=== PATIENT | male | born 1960 | race Caucasian/White ===

== ENCOUNTER 2017-10-09 17:29 | Observation (INO) | payer OTHER ==
[~2017-10-09] VITALS: Ht 190.5 cm; Wt 99.4 kg
[2017-10-09] MEDS ORDERED: ACETAMINOPHEN 500 MG TAB PO STA (17:44)
--- NOTE | 2017-10-09 17:47 | EMERGENCY ROOM VISIT NOTE ---
History Report prepared by Ronny: Juan Manuel Villeda Under the Supervision of: Dr. Dashawn Metz M.D. First contact with patient: 17:35 Chief Complaint: CHEST PAIN Stated Complaint: CHEST PAIN History of Present Illness The patient is a 57 year old white male with a past medical history of DM2, CAD status-post stents, hypertension, hyperlipidemia, hypothyroidism, who [facility] with a cc of intermittent left-sided beginning around 2 and a half hours ago. Positive mild nausea. Negative radiation of pain, shortness of breath, abdominal pain, diaphoresis, cough, fevers, chills, leg swelling. He states that the pain feels like a sharp "pin prick", and the pain has been off-and-on. The patient says that the pain is still coming and going. He says that exertion has not changed the pain. He notes no recent trauma. The patient also notes no recent over-use of his left arm. He states that he has had a bruise on his left shoulder for a few days but is on a blood thinner. He is on Brilinta for the stents. Source of History: patient Onset: 2 and a half hours ago Position: chest (left) Quality: sharp Timing: intermittent Associated Symptoms: + nausea, No fevers, No chills, No diaphoresis, No cough, No abdominal pain Note: Negative leg swelling. Review of Systems See HPI for pertinent positives and negatives. A total of ten systems were reviewed and were otherwise negative. Past Medical & Surgical Medical Problems: (1) DM2 (diabetes mellitus, type 2) (2) HLD (hyperlipidemia) (3) HTN (hypertension) (4) Hypothyroid Surgical Problems: (1) CAD (coronary artery disease) (2) Hx of heart artery stent Family History No pertinent family history Social History Drug Use: none Housing Status: other (inmate) Occupation Status: other (inmate) Current/Historical Medications Scheduled Amlodipine (Norvasc), 10 MG PO DAILY Aspirin (Aspirin Chewable), 81 MG PO DAILY Atorvastatin (Lipitor), 40 MG PO HS Duloxetine Hcl (Cymbalta), 60 MG PO HS Hydrochlorothiazide (Hctz), 25 MG PO DAILY Insulin Glargine (Lantus), 8 UNITS SC HS V-Tyyosczzsknh-Vwitb (Deplin 15), 15 MG PO HS Lamotrigine (Lamictal), 200 MG PO DAILY Levothyroxine Sodium (Synthroid), 25 MCG PO DAILY Lisinopril (Zestril), 20 MG PO BID Metformin Hcl (Glucophage), 850 MG PO BID Metoprolol Tartrate (Lopressor) (Lopressor), 100 MG PO BID Potassium Chloride (K-Tab), 20 MEQ PO BID Pumice Stone (Pumice (Flour)), 1 DOSE [id number] Ticagrelor (Brilinta), 90 MG PO BID [Benadryl 50 Mg], 100 MG PO HS Physical Exam Vital Signs Date Time Temp Pulse Resp B/P (MAP) Pulse Ox O2 Delivery O2 Flow Rate FiO2 10/09/17 18:02 98 Room Air 10/09/17 17:40 98 Room Air 10/09/17 17:40 36.6 72 23 141/93 98 Room Air 10/09/17 17:40 64 Physical Exam GENERAL: Awake, alert, well-appearing, NAD, wearing glasses, has thinning hair. HENT: Normocephalic, atraumatic. EYES: Normal conjunctiva. Sclera non-icteric. NECK: Supple. No nuchal rigidity. FROM. RESPIRATORY: CTAB, no rhonchi, wheezing, crackles CARDIAC: RRR, no MRG ABDOMEN: Soft, NTND, BS+ MSK: No reproducible chest wall pain, no LE edema NEURO: GCS 15, CN 2-12 intact, moves all 4s on command SKIN: No rash or jaundice noted. Tattoos on arms. Medical Decision & Procedures ER Provider Diagnostic Interpretation: X-ray: Per my interpretation, radiologist review. CHEST ONE VIEW PORTABLE CLINICAL HISTORY: CHEST PAIN COMPARISON STUDY: No previous studies for comparison. FINDINGS: Lung volumes are normal. No pneumothorax or pleural effusion is noted. There is no consolidation. Mild bibasilar opacities favor atelectasis. Cardiomediastinal silhouette is normal. IMPRESSION: No acute cardiopulmonary findings. Electronically signed by: Nik Allen M.D. 10/09/2017 6:12 PM Dictated Date/Time: 10/09/2017 5:59 PM Laboratory Results 10/09/17 18:10 Red Blood Count 4.80, Mean Corpuscular Volume 87.1, Mean Corpuscular Hemoglobin 30.0, Mean Corpuscular Hemoglobin Concent 34.4, Mean Platelet Volume 11.2, Neutrophils (%) (Auto) 60.9, Lymphocytes (%) (Auto) 28.6, Monocytes (%) (Auto) 8.1, Eosinophils (%) (Auto) 1.8, Basophils (%) (Auto) 0.4, Neutrophils # (Auto) 6.96, Lymphocytes # (Auto) 3.27, Monocytes # (Auto) 0.92, Eosinophils # (Auto) 0.20, Basophils # (Auto) 0.05 10/09/17 18:10 Test 10/09/17 18:10 10/09/17 19:25 White Blood Count 11.42 K/uL (4.8-10.8) Red Blood Count 4.80 M/uL (4.7-6.1) Hemoglobin 14.4 g/dL (14.0-18.0) Hematocrit 41.8 % (42-52) Mean Corpuscular Volume 87.1 fL (80-100) Mean Corpuscular Hemoglobin 30.0 pg (25-34) Mean Corpuscular Hemoglobin Concent 34.4 g/dl (32-36) Platelet Count 147 K/uL (130-400) Mean Platelet Volume 11.2 fL (7.4-10.4) Neutrophils (%) (Auto) 60.9 % Lymphocytes (%) (Auto) 28.6 % Monocytes (%) (Auto) 8.1 % Eosinophils (%) (Auto) 1.8 % Basophils (%) (Auto) 0.4 % Neutrophils # (Auto) 6.96 K/uL (1.4-6.5) Lymphocytes # (Auto) 3.27 K/uL (1.2-3.4) Monocytes # (Auto) 0.92 K/uL (0.11-0.59) Eosinophils # (Auto) 0.20 K/uL (0-0.5) Basophils # (Auto) 0.05 K/uL (0-0.2) RDW Standard Deviation 45.8 fL (36.4-46.3) RDW Coefficient of Variation 14.4 % (11.5-14.5) Immature Granulocyte % (Auto) 0.2 % Immature Granulocyte # (Auto) 0.02 K/uL (0.00-0.02) Prothrombin Time 11.4 SECONDS (9.0-12.0) Prothromb Time International Ratio 1.1 (0.9-1.1) Activated Partial Thromboplast Time 29.1 SECONDS (21.0-31.0) Partial Thromboplastin Ratio 1.1 Anion Gap 6.0 mmol/L (3-11) Est Creatinine Clear Calc Drug Dose 103.9 ml/min Estimated GFR () 94.6 Estimated GFR (Non- 81.6 BUN/Creatinine Ratio 11.2 (10-20) Calcium Level 9.0 mg/dl (8.5-10.1) Total Bilirubin 0.3 mg/dl (0.2-1) Direct Bilirubin 0.1 mg/dl (0-0.2) Aspartate Amino Transf (AST/SGOT) 17 U/L (15-37) Alanine Aminotransferase (ALT/SGPT) 21 U/L (12-78) Alkaline Phosphatase 86 U/L (45-117) Pro-B-Type Natriuretic Peptide 108 pg/ml (0-900) Total Protein 7.5 gm/dl (6.4-8.2) Albumin 3.9 gm/dl (3.4-5.0) Lipase 162 U/L (73-393) Troponin I < 0.015 ng/ml (0-0.045) Laboratory results reviewed by me Medications Administered Medications (Trade) Dose Ordered Sig/Karan Route Start Time Stop Time Status Last Admin Dose Admin Acetaminophen (Tylenol Tab) 1,000 mg NOW STAT PO 10/09/17 17:44 10/09/17 17:45 DC 10/09/17 18:01 1,000 MG Aspirin (Aspirin Chew) 162 mg NOW STAT PO 10/09/17 18:15 10/09/17 18:16 DC 10/09/17 18:31 162 MG Magnesium Oxide (Mag-Ox Tab) 800 mg ONE STAT PO 10/09/17 18:42 10/09/17 18:43 DC 10/09/17 18:53 800 MG Potassium Chloride (Klor-Con Tab) 40 meq NOW STAT PO 10/09/17 18:42 18 18:43 DC 10/09/17 18:57 20 MEQ Potassium Chloride (Klor-Con M10) 20 meq STK-MED ONCE .ROUTE 10/09/17 18:55 10/09/17 18:56 DC 10/09/17 18:57 20 MEQ ECG Per My Interpretation Indication: chest pain Rate (beats per minute): 63 Rhythm: sinus rhythm Findings: 1st degree AV block, T-wave inversion (in anterior and lateral leads) , other (normal qrs) Change: 2nd ECG: Sinus bradycardia at 55 bpm. First degree AV block. TWI in anterior and lateral leads. Normal QRS. ED Course 1738: The patient was evaluated in room B7. A complete history and physical exam was performed. 1916: I reevaluated the patient and he has no pain. 1955: Upon reexamination, the patient was willing to stay. I discussed the test results and treatment plan with him. The patient will be evaluated for further management. 2003: Discussed the patient's case [place] [facility] The patient will be evaluated for further treatment and disposition. Medical Decision Nursing notes reviewed. Ancillary studies and prior records reviewed. Differential diagnosis: Etiologies such as cardiac ischemia, aortic dissection, pulmonary embolism, pneumonia, pneumothorax, musculoskeletal, infections, pericarditis, myocarditis , esophageal rupture, gastrointestinal, as well as others were entertained. Patient was seen and evaluated the bedside. Patient is a 57-year-old prisoner with a prior history of CAD status post stents on Brilinta, hypertension, hyperlipidemia, hypothyroidism who presents with a chief complaint of chest pain. Patient does state that it is left-sided sharp nonradiating. Patient denies any nausea vomiting or diaphoresis. Patient is unsure as whether or not his chest pain is exertional or positional. Patient did have blood work completed along with EKG, troponin, chest x-ray. Patient's chest x-ray was unremarkable. Patient's EKG did show TW I in the anterior and lateral leads. No priors to compare to. Patient was given some aspirin given his Brilinta use the patient was also given some Tylenol. Patient 's blood work is fairly unremarkable. Patient had mild hypokalemia. This is repleted. Magnesium was also added and the patient was given magnesium oxide. Given the patient's high risk nature along with the T-wave inversions with no prior comparison I did discuss it with the patient who agreed for likely observation. I did discuss case with the on-call hospitalist who agreed to further evaluate and treat patient. I did discuss the patient with the machine adjuster leader case trim in order to help obtain the outside patient records from [facility]. Medication Reconcilliation Current Medication List: was personally reviewed by me Blood Pressure Screening Patient's blood pressure: Elevated blood pressure Referred to hospitalist. Consults Time Called: 1999 Consulting Physician: Dr. Mark HERNANDEZ hospitalist Returned Call: 2003 Discussed the patient's case with Dr. Mark HERNANDEZ hospitalist. The patient will be evaluated for further treatment and disposition. Impression Primary Impression: Atypical chest pain Additional Impressions: Hypokalemia CAD S/P percutaneous coronary angioplasty Scribe Attestation The scribe's documentation has been prepared under my direction and personally reviewed by me in its entirety. I confirm that the note above accurately reflects all work, treatment, procedures, and medical decision making performed by me. Departure Information Dispostion Being Evaluated By Hospitalist Patient Instructions My [facility] Problem Qualifiers
--- NOTE | 2017-10-09 18:13 | DIAGNOSTIC IMAGING REPORT ---
CHEST ONE VIEW PORTABLE CLINICAL HISTORY: CHEST PAIN COMPARISON STUDY: No previous studies for comparison. FINDINGS: Lung volumes are normal. No pneumothorax or pleural effusion is noted. There is no consolidation. Mild bibasilar opacities favor atelectasis. Cardiomediastinal silhouette is normal. IMPRESSION: No acute cardiopulmonary findings. Electronically signed by: Nik Allen M.D. 10/09/2017 6:12 PM Dictated Date/Time: 10/09/2017 5:59 PM
[2017-10-09] MEDS ORDERED: ASPIRIN 324 MG CHEW PO STA (18:15)
[2017-10-09 18:19] LABS: BASO % 0.4 %; BASO ABS # 0.05 K/uL (0-0.2); EOS % 1.8 %; HEMATOCRIT 41.8 % (42-52); HEMOGLOBIN 14.4 g/dL (14.0-18.0); IG# 0.02 K/uL (0.00-0.02); LYMPH % 28.6 %; LYMPH ABS # 3.27 K/uL (1.2-3.4); MEAN CELL VOLUME 87.1 fL (80-100); MEAN CORPUSCULAR HGB CONC 34.4 g/dl (32-36); MEAN PLATELET VOLUME 11.2 fL (7.4-10.4); MONO % 8.1 %; MONO ABS # 0.92 K/uL (0.11-0.59); NEUT % 60.9 %; NEUT ABS # 6.96 K/uL (1.4-6.5); PLATELET COUNT 147 K/uL (130-400); RED CELL DISTRIBUTION WIDTH CV 14.4 % (11.5-14.5); RED CELL DISTRIBUTION WIDTH SD 45.8 fL (36.4-46.3); WHITE BLOOD COUNT 11.42 K/uL (4.8-10.8)
[2017-10-09 18:30] LABS: INR 1.1 (0.9-1.1); PTT PATIENT 29.1 SECONDS (21.0-31.0)
[2017-10-09 18:37] LABS: ALBUMIN 3.9 gm/dl (3.4-5.0); ALT/SGPT 21 U/L (12-78); AST/SGOT 17 U/L (15-37); BLOOD UREA NITROGEN 11 mg/dl (7-18); CARBON DIOXIDE 26 mmol/L (21-32); CREATININE 1.01 mg/dl (0.60-1.40); GLUCOSE 85 mg/dl (70-99); LIPASE 162 U/L (73-393); POTASSIUM 3.2 mmol/L (3.5-5.1); SODIUM 138 mmol/L (136-145)
[2017-10-09 18:42] LABS: ALKALINE PHOSPHATASE 86 U/L (45-117); TOTAL PROTEIN 7.5 gm/dl (6.4-8.2)
[2017-10-09] MEDS ORDERED: POTASSIUM CHLORIDE 20 MEQ TABCR PO STA (18:42)
[2017-10-09] MEDS ORDERED: MAGNESIUM OXIDE 400 MG TAB PO STA (18:42)
[2017-10-09] MEDS ORDERED: POTASSIUM CHLORIDE 10 MEQ TABCR ONE (18:55)
[2017-10-09] MEDS ORDERED: L-ME1CAP PO (19:52)
[2017-10-09] MEDS ORDERED: ASPCH81X PO (19:52)
[2017-10-09] MEDS ORDERED: POTA1TAB97 PO (19:52)
[2017-10-09] MEDS ORDERED: LAMO100T16 PO (19:52)
[2017-10-09] MEDS ORDERED: HYDR25TA4 PO (19:52)
[2017-10-09] MEDS ORDERED: INSDGI SC (19:52)
[2017-10-09] MEDS ORDERED: [UNRECOGNIZED DRUG - CODE] (19:52)
[2017-10-09] MEDS ORDERED: BENADRYL 50 MG PO (19:52)
[2017-10-09] MEDS ORDERED: LISI-725 PO (19:52)
[2017-10-09] MEDS ORDERED: ATOR-24 PO (19:52)
[2017-10-09] MEDS ORDERED: DULO60CA44 PO (19:52)
[2017-10-09] MEDS ORDERED: AMLO-114 PO (19:52)
[2017-10-09] MEDS ORDERED: LEVO25TA PO (19:52)
[2017-10-09] MEDS ORDERED: METO100T14 PO (19:52)
[2017-10-09] MEDS ORDERED: TICA1TAB PO (19:52)
[2017-10-09] MEDS ORDERED: METF-383 PO (19:52)
[2017-10-09] MEDS ORDERED: MAGNESIUM HYDROXIDE SUSP 30 ML UDC PO PRN (22:30)
[2017-10-09] MEDS ORDERED: POLYETHYLENE (MIRALAX) 17 GM PACK PO PRN (22:30)
[2017-10-09] MEDS ORDERED: ACETAMINOPHEN 325 MG TAB PO PRN (22:30)
[2017-10-09] MEDS ORDERED: ZOLPIDEM TARTRATE 5 MG TAB PO PRN (22:30)
[2017-10-09] MEDS ORDERED: ALUMINUM/MAGNESIUM/SIMETH (MAALOX MAX) 30 ML UDC PO PRN (22:30)
[2017-10-09] MEDS ORDERED: ONDANSETRON INJ 2 MG/ML 2 ML VIAL IV PRN (22:30)
--- NOTE | 2017-10-09 22:54 | History and Physical ---
History & Physical Date & Time of Service: Oct 09, 2017 at 21:57 Chief Complaint: Chest Pain Primary Care Physician: Leia MELGAR History of Present Illness Source: patient, hospital records 57M from [facility] with a PMHx of CAD s/p 3 stents in May 2017, DM2 (on insulin ), hypothyroidism, HTN p/w a pin prick sensation over the left chest that started while he was at rest watching TV. The location is approx 3-4cm lateral and 1-2cm inferior to the left nipple. Patient states that because of his prior cardiac history he isn't taking any chances with any chest discomfort and told the guards about his discomfort. Pt reports his previous anginal symptoms prior to the PCI was more of a chest pressure/pain that radiated down the left arm. The pin prick sensation is a completely different type of chest pain Pt denies ever having chicken pox or herpes Zoster and denies knowing what the latter is. Pt states there is no rash over the area. Pt had PCI last year in May 2017 while incarcerated. He was transfered to [facility] June [facility] a penitentiary in [facility] after his PCI which is likely why he was brought to [facility] and not [facility]. Records from [facility] were reviewed. No high quality EKGs are available for reviewing. Pt states that he has been feeling otherwise healthy. ROS: No fevers, no chills, no dyspnea on exertion, no lightheadedness, no cough , no falls. Past Medical/Surgical History Medical Problems: (1) DM2 (diabetes mellitus, type 2) (2) HLD (hyperlipidemia) (3) HTN (hypertension) (4) Hypothyroid Surgical Problems: (1) CAD (coronary artery disease) (2) Hx of heart artery stent Family History No pertinent family history Social History Smoking Status: Unknown if Ever Smoked Drug Use: none Occupational Status: other (inmate) Immunizations History of Influenza Vaccine: Unknown History of Tetanus Vaccine?: Unknown History of Pneumococcal: Unknown History of Hepatitis B Vaccine: Unknown Allergies Coded Allergies: No Known Allergies (Unverified , 10/09/17) Home Medications Scheduled Amlodipine (Norvasc), 10 MG PO DAILY Aspirin (Aspirin Chewable), 81 MG PO DAILY Atorvastatin (Lipitor), 40 MG PO HS Duloxetine Hcl (Cymbalta), 60 MG PO HS Hydrochlorothiazide (Hctz), 25 MG PO DAILY Insulin Glargine (Lantus), 8 UNITS SC HS J-Oocqmfmpfyox-Thasf (Deplin 15), 15 MG PO HS Lamotrigine (Lamictal), 200 MG PO DAILY Levothyroxine Sodium (Synthroid), 25 MCG PO DAILY Lisinopril (Zestril), 20 MG PO BID Metformin Hcl (Glucophage), 850 MG PO BID Metoprolol Tartrate (Lopressor) (Lopressor), 100 MG PO BID Potassium Chloride (K-Tab), 20 MEQ PO BID Pumice Stone (Pumice (Flour)), 1 DOSE [id number] Ticagrelor (Brilinta), 90 MG PO BID [Benadryl 50 Mg], 100 MG PO HS Review of Systems Constitutional: No fever, No chills Eyes: No worsening of vision ENT: No hearing loss Respiratory: No cough, No sputum, No wheezing, No shortness of breath, No dyspnea on exertion Cardiovascular: No chest pain, No orthopnea, No edema, No claudication Abdomen: No pain, No nausea, No vomiting, No diarrhea, No constipation Musculoskeletal: No joint pain Genitourinary - Male: No hematuria Endocrine: No fatigue Integumentary: No rash Physical Exam Vital Signs Date Time Temp Pulse Resp B/P (MAP) Pulse Ox O2 Delivery O2 Flow Rate FiO2 10/09/17 21:41 63 10/09/17 21:00 56 10 129/95 96 10/09/17 20:30 57 19 98 10/09/17 20:00 60 17 98 10/09/17 19:30 56 19 98 10/09/17 19:00 58 12 99 10/09/17 18:02 98 Room Air 10/09/17 17:40 98 Room Air 10/09/17 17:40 36.6 72 23 141/93 98 Room Air 10/09/17 17:40 64 General Appearance: WD/WN, no apparent distress Head: normocephalic, atraumatic Eyes: normal inspection, PERRL, EOMI Neck: supple Respiratory/Chest: chest non-tender, lungs clear, normal breath sounds, no respiratory distress, no accessory muscle use Cardiovascular: regular rate, rhythm, no edema, no gallop, no JVD, no murmur, normal peripheral pulses Abdomen/GI: normal bowel sounds, non tender, soft, no organomegaly, no pulsatile mass Back: normal inspection Extremities/Musculoskelatal: normal inspection, no calf tenderness Neurologic/Psych: race starter II-XII nml as tested, no motor/sensory deficits, alert, normal mood/affect, normal reflexes, oriented x 3 Skin: + pertinent finding (Pt does report some increase sensitivity in the area of the skin over the left chest. No rashse or vesicles over the area. Pt does have some mild erythema over the sternum, maculopapular - no vesicles. ) Diagnostics Laboratory Results Results Past 24 Hours Test 10/09/17 18:10 10/09/17 19:25 Range/Units White Blood Count 11.42 4.8-10.8 K/uL Red Blood Count 4.80 4.7-6.1 M/uL Hemoglobin 14.4 14.0-18.0 g/dL Hematocrit 41.8 42-52 % Mean Corpuscular Volume 87.1 80-100 fL Mean Corpuscular Hemoglobin 30.0 25-34 pg Mean Corpuscular Hemoglobin Concent 34.4 32-36 g/dl Platelet Count 147 130-400 K/uL Mean Platelet Volume 11.2 7.4-10.4 fL Neutrophils (%) (Auto) 60.9 % Lymphocytes (%) (Auto) 28.6 % Monocytes (%) (Auto) 8.1 % Eosinophils (%) (Auto) 1.8 % Basophils (%) (Auto) 0.4 % Neutrophils # (Auto) 6.96 1.4-6.5 K/uL Lymphocytes # (Auto) 3.27 1.2-3.4 K/uL Monocytes # (Auto) 0.92 0.11-0.59 K/uL Eosinophils # (Auto) 0.20 0-0.5 K/uL Basophils # (Auto) 0.05 0-0.2 K/uL RDW Standard Deviation 45.8 36.4-46.3 fL RDW Coefficient of Variation 14.4 11.5-14.5 % Immature Granulocyte % (Auto) 0.2 % Immature Granulocyte # (Auto) 0.02 0.00-0.02 K/uL Prothrombin Time 11.4 9.0-12.0 SECONDS Prothromb Time International Ratio 1.1 0.9-1.1 Activated Partial Thromboplast Time 29.1 21.0-31.0 SECONDS Partial Thromboplastin Ratio 1.1 Sodium Level 138 136-145 mmol/L Potassium Level 3.2 3.5-5.1 mmol/L Chloride Level 106 98-107 mmol/L Carbon Dioxide Level 26 21-32 mmol/L Anion Gap 6.0 3-11 mmol/L Blood Urea Nitrogen 11 7-18 mg/dl Creatinine 1.01 0.60-1.40 mg/dl Est Creatinine Clear Calc Drug Dose 103.9 ml/min Estimated GFR () 94.6 Estimated GFR (Non- 81.6 BUN/Creatinine Ratio 11.2 10-20 Random Glucose 85 70-99 mg/dl Calcium Level 9.0 8.5-10.1 mg/dl Total Bilirubin 0.3 0.2-1 mg/dl Direct Bilirubin 0.1 0-0.2 mg/dl Aspartate Amino Transf (AST/SGOT) 17 15-37 U/L Alanine Aminotransferase (ALT/SGPT) 21 12-78 U/L Alkaline Phosphatase 86 45-117 U/L Troponin I < 0.015 < 0.015 0-0.045 ng/ml Pro-B-Type Natriuretic Peptide 108 0-900 pg/ml Total Protein 7.5 6.4-8.2 gm/dl Albumin 3.9 3.4-5.0 gm/dl Lipase 162 73-393 U/L Diagnostic Radiology CHEST ONE VIEW PORTABLE CLINICAL HISTORY: CHEST PAIN COMPARISON STUDY: No previous studies for comparison. FINDINGS: Lung volumes are normal. No pneumothorax or pleural effusion is noted. There is no consolidation. Mild bibasilar opacities favor atelectasis. Cardiomediastinal silhouette is normal. IMPRESSION: No acute cardiopulmonary findings. EKG EKG: Sinus, non specific T wave abnormality. Records from [facility] reviewed - Faxed EKG was too blurry to come to any conclusion. Computer read from [facility] showed "Sinus bradycardiac with 1st degree AV block, cannot rule out inferior infarct, age undertermined. Abnormal EKG" - DATED MAY 21, 2017. Impression Assessment and Plan 57M from [facility] with a PMHx of CAD s/p 3 stents in May 2017, DM2 (on insulin ), hypothyroidism, HTN p/w a pin prick sensation over the left chest. Unfortunately there are no prior EKGs to compare it to. Trops were negative x 1. Pt is admitted for a chest pain rule out. Pin Prick sensation over left chest, DDx include cardiac vs rashless Zoster. Trop neg x 1. Will trend trops and get EKG tomorrow. Daily EKGs. Will get Echocardiogram. CAD s/p PCI in May 2017 c/w ASA and Brilinta daily c/w Metoprolol 100mg BID HLD/HTN c/w Norvasc and Lipitor c/w HCTZ + 20meq KCL. c/w Lisinopril Metoprolol as above. Mood c/w Cymbalta 60mg QHS. c/w Lamictal 200mg PO daily. DM2 c/w Metformin and Lantus 8units SC HS. Will get a HBA1C. Hypothyroid c/w Synthroid 25mcg daily. DIET: NPO except meds, IVF. DVT Proph: HepSQ BID Obs to Tele. FULL CODE. Attending addendum: I have physically seen this patient, have supervised the medical residents activities, and agree with the H&P unless as otherwise noted. Assessment and Plan: CAD/hypertension/status post PCI May 2017-- The patient will be admitted to telemetry for serial cardiac enzymes, serial EKG's, cardiac rhythm monitoring and a 2-D echocardiogram with Dopplers.. Continue aspirin, Brilinta, metoprolol, Norvasc, HCTZ and potassium chloride supplements. Get records from [facility]. Cardiology consult. Diabetes mellitus-- Hold metformin. Continue Lantus 8 units subcu at bedtime. Place on Accu-Cheks before meals and at bedtime with NovoLog coverage per scale. Check hemoglobin A1c. Hyperlipidemia-- Continue atorvastatin. Check a fasting lipid profile. Other medications as above. Advanced Directives Existing Advance Directive: No Existing Living Will: No Existing Power of Sand Control Worker: No Resuscitation Status VTE Prophylaxis Will order VTE Prophylaxis: Yes Resident Involvement: Resident Care Provided Care Provided: Adult Hospital Medicine
[2017-10-09 23:20] VITALS: BP 134/125; PULSE 61; TEMP 36.4; O2SAT 98
[2017-10-09 23:40] VITALS: BP 134/125; PULSE 61; TEMP 36.4; O2SAT 98; Ht 190.5 cm; Wt 99.4 kg
[2017-10-09] MEDS ORDERED: PATIENT'S ALLERGY INFO NEEDS ENTERED SCH (23:45)
[2017-10-09] MEDS: NSS + 20MEQ KCL 1000ML 1,000 ML IV SCH (23:47)
[2017-10-09] MEDS ORDERED: PHARMACY GLYCEMIC MGMT CONSULT PRN (23:57)
[2017-10-10] MEDS ORDERED: IV FLUIDS COMPLETED PRN (00:45)
[2017-10-10 03:22] VITALS: BP 156/82; PULSE 56; TEMP 36.8; O2SAT 98
[2017-10-10 04:00] VITALS: O2SAT 98
[2017-10-10] MEDS ORDERED: LEVOTHYROXINE 25 MCG TAB PO SCH (06:00)
[2017-10-10] MEDS ORDERED: METFORMIN HCL 850 MG TAB PO SCH (07:30)
[2017-10-10 07:35] LABS: HEMOGLOBIN A1C 5.7 % (4.5-5.6)
--- NOTE | 2017-10-10 07:59 | Family Medicine Progress Note ---
Progress Note Date of Service Oct 10, 2017. Subjective Pt evaluation today including: conversation w/ patient Found patient resting and speaking very comfortably in the gurney. Says that his prior chest discomfort resolved perhaps around 8 pm (very roughly) last night and has yet to return. No present CP, SOB, N/V, abd pain, or other acute concerns. Just says he is hungry. Constitutional: No fever, No chills Respiratory: No cough, No shortness of breath Cardiovascular: No chest pain, No edema Abdomen: No pain, No nausea, No vomiting, No diarrhea Medications Reported Home Medications Medications Dose Route/Sig Max Daily Dose Days Date Category Pumice (Flour) (Pumice Stone) 1 Pow Pow 1 Dose [id number] 10/09/17 Reported Lantus (Insulin Glargine) 100 Unit/Ml Inj 8 Units SC HS 10/09/17 Reported K-Tab (Potassium Chloride) 20 Meq Tab 20 Meq PO BID 10/09/17 Reported Lopressor (Metoprolol Tartrate) 100 Mg Tab 100 Mg PO BID 10/09/17 Reported Glucophage (Metformin Hcl) 850 Mg Tab 850 Mg PO BID 10/09/17 Reported Zestril (Lisinopril) 20 Mg Tab 20 Mg PO BID 10/09/17 Reported Synthroid (Levothyroxine Sodium) 25 Mcg Tab 25 Mcg PO DAILY 10/09/17 Reported Lamictal (Lamotrigine) 100 Mg Tab 200 Mg PO DAILY 10/09/17 Reported Deplin 15 (V-Rkdfiaabvsge-Nchpr) 1 Cap Cap 15 Mg PO HS 10/09/17 Reported Hctz (Hydrochlorothiazide) 25 Mg Tab 25 Mg PO DAILY 10/09/17 Reported Cymbalta (Duloxetine Hcl) 60 Mg Cap 60 Mg PO HS 10/09/17 Reported [Benadryl 50 Mg] 100 Mg PO HS 10/09/17 Reported Brilinta (Ticagrelor) 90 Mg Tab 90 Mg PO BID 10/09/17 Reported Lipitor (Atorvastatin Calcium) 40 Mg Tab 40 Mg PO HS 10/09/17 Reported Aspirin Chewable (Aspirin) 81 Mg Chew 81 Mg PO DAILY 10/09/17 Reported Norvasc (Amlodipine Besylate) 10 Mg Tab 10 Mg PO DAILY 10/09/17 Reported Objective Vital Signs Date Time Temp Pulse Resp B/P (MAP) Pulse Ox O2 Delivery O2 Flow Rate FiO2 10/10/17 04:00 98 Room Air 10/10/17 03:22 36.8 56 17 156/82 (106) 98 Room Air 10/09/17 23:40 36.4 61 18 134/125 98 Room Air 10/09/17 23:20 36.4 61 18 134/125 (128) 98 Room Air 10/09/17 23:08 52 18 159/83 95 10/09/17 23:05 52 18 159/83 95 Room Air 10/09/17 21:41 63 10/09/17 21:00 56 10 129/95 96 10/09/17 20:30 57 19 98 10/09/17 20:00 60 17 98 10/09/17 19:30 56 19 98 10/09/17 19:00 58 12 99 10/09/17 18:02 98 Room Air 10/09/17 17:40 98 Room Air 10/09/17 17:40 36.6 72 23 141/93 98 Room Air 10/09/17 17:40 64 Physical Exam Notes: General Appearance: Awake, alert and oriented, in NAD. CV: +S1S2 RRR, no murmur. Pulm: CTA (B). No accessory muscle use. Abdomen: +BS, soft, non-tender, non-distended. Extremities: No pedal edema or calf tenderness. Moving all extremities easily and naturally. Neuro: No gross neuro deficits. Lines: PIV. Laboratory Results 10/09/17 18:10 Red Blood Count 4.80, Mean Corpuscular Volume 87.1, Mean Corpuscular Hemoglobin 30.0, Mean Corpuscular Hemoglobin Concent 34.4, Mean Platelet Volume 11.2, Neutrophils (%) (Auto) 60.9, Lymphocytes (%) (Auto) 28.6, Monocytes (%) (Auto) 8.1, Eosinophils (%) (Auto) 1.8, Basophils (%) (Auto) 0.4, Neutrophils # (Auto) 6.96, Lymphocytes # (Auto) 3.27, Monocytes # (Auto) 0.92, Eosinophils # (Auto) 0.20, Basophils # (Auto) 0.05 10/09/17 18:10 Test 10/09/17 18:10 10/10/17 01:44 10/10/17 07:43 White Blood Count 11.42 K/uL (4.8-10.8) Red Blood Count 4.80 M/uL (4.7-6.1) Hemoglobin 14.4 g/dL (14.0-18.0) Hematocrit 41.8 % (42-52) Mean Corpuscular Volume 87.1 fL (80-100) Mean Corpuscular Hemoglobin 30.0 pg (25-34) Mean Corpuscular Hemoglobin Concent 34.4 g/dl (32-36) Platelet Count 147 K/uL (130-400) Mean Platelet Volume 11.2 fL (7.4-10.4) Neutrophils (%) (Auto) 60.9 % Lymphocytes (%) (Auto) 28.6 % Monocytes (%) (Auto) 8.1 % Eosinophils (%) (Auto) 1.8 % Basophils (%) (Auto) 0.4 % Neutrophils # (Auto) 6.96 K/uL (1.4-6.5) Lymphocytes # (Auto) 3.27 K/uL (1.2-3.4) Monocytes # (Auto) 0.92 K/uL (0.11-0.59) Eosinophils # (Auto) 0.20 K/uL (0-0.5) Basophils # (Auto) 0.05 K/uL (0-0.2) RDW Standard Deviation 45.8 fL (36.4-46.3) RDW Coefficient of Variation 14.4 % (11.5-14.5) Immature Granulocyte % (Auto) 0.2 % Immature Granulocyte # (Auto) 0.02 K/uL (0.00-0.02) Prothrombin Time 11.4 SECONDS (9.0-12.0) Prothromb Time International Ratio 1.1 (0.9-1.1) Activated Partial Thromboplast Time 29.1 SECONDS (21.0-31.0) Partial Thromboplastin Ratio 1.1 Anion Gap 6.0 mmol/L (3-11) Est Creatinine Clear Calc Drug Dose 103.9 ml/min Estimated GFR () 94.6 Estimated GFR (Non- 81.6 BUN/Creatinine Ratio 11.2 (10-20) Calcium Level 9.0 mg/dl (8.5-10.1) Total Bilirubin 0.3 mg/dl (0.2-1) Direct Bilirubin 0.1 mg/dl (0-0.2) Aspartate Amino Transf (AST/SGOT) 17 U/L (15-37) Alanine Aminotransferase (ALT/SGPT) 21 U/L (12-78) Alkaline Phosphatase 86 U/L (45-117) Pro-B-Type Natriuretic Peptide 108 pg/ml (0-900) Total Protein 7.5 gm/dl (6.4-8.2) Albumin 3.9 gm/dl (3.4-5.0) Lipase 162 U/L (73-393) Estimated Average Glucose 117 mg/dl Hemoglobin A1c 5.7 % (4.5-5.6) Date/Time Source Procedure Growth Status 10/10/17 00:00 Nasal MRSA DNA Surveillance Screen - Final Specimen Negative for MRSA by DNA Probe Complete Assessment and Plan IN PROGRESS 57 yo male admitted on 09Oct2017 for chest discomfort. Transfer from [facility]. PMH: CAD s/p three vessel stenting in May 2017, DM2 on insulin, hypothyroidism, HTN, HLD. Chest discomfort: Described as a pin prick sensation for a few hours yesterday, since resolved. Does have PMH of CAD with stents. EKG sinus javy with first degree AV block, T wave inversions in V2-V6. Second EKG mostly unchanged. TnI x 3 negative. CXR without acute disease. Overnight did have an eight-beat run of V tach that self-resolved. Since then has been in sinus rhythm 50's to 70' s. - Echocardiogram from this morning pending. CAD s/p PCI May 2017: On ASA, Brilinta, metoprolol. Chronic medical history: - HTN: On HCTZ, KCl, lisinopril, metoprolol, norvasc. - HLD: On lipitor. - DM2: Holding metformin as inpatient. On lantus. Monitoring. - Hypothyroidism: On synthroid. - Mood: On cymbalta and lamictal. Code status: Full code. Diet: NPO in case of cardiac procedure today. DVT prophy: Heparin q12h. PT/OT: Deferred. Disbo: Admit for observation to telemetry. Resident Tracking Resident Involvement: Resident Care Provided Care Provided: Adult Hospital Medicine (inpatient)
[2017-10-10 08:08] VITALS: BP 155/87; PULSE 56; TEMP 36.8; O2SAT 97
[2017-10-10] MEDS: NSS + 20MEQ KCL 1000ML 1,000 ML IV SCH (08:10)
[2017-10-10] MEDS ORDERED: POTASSIUM CHLORIDE 20 MEQ TABCR PO SCH (09:00)
[2017-10-10] MEDS ORDERED: ASPIRIN 81 MG CHEW PO SCH (09:00)
[2017-10-10] MEDS ORDERED: AMLODIPINE BESYLATE 5 MG TAB PO SCH (09:00)
[2017-10-10] MEDS ORDERED: METOPROLOL TARTRATE 100 MG TAB PO SCH (09:00)
[2017-10-10] MEDS ORDERED: TICAGRELOR 90 MG TAB PO SCH (09:00)
[2017-10-10] MEDS ORDERED: HEPARIN SOD 5000 UNIT/0.5 ML CARP SQ SCH (09:00)
[2017-10-10] MEDS ORDERED: LISINOPRIL 20 MG TAB PO SCH (09:00)
[2017-10-10] MEDS ORDERED: HYDROCHLOROTHIAZIDE 25 MG TAB PO SCH (09:00)
[2017-10-10 11:36] VITALS: BP 120/62; PULSE 70; TEMP 36.9; O2SAT 94
--- NOTE | 2017-10-10 13:10 | Pharmacy Progress Note ---
Glycemic Control Intl Consult Date of Service Oct 10, 2017. Scope Glycemic Pharmacist consulted by Dr Ye on 10/10/17 for glycemic control and to write orders per [facility] inpatient glycemic control protocol Objective Weight (Kilograms): 99.400 Accuchecks BSG (last 24hrs): Test 10/09/17 18:10 10/10/17 11:10 Random Glucose 85 mg/dl (70-99) Bedside Glucose 96 mg/dl (70-99) Laboratory Data (last 24hrs) Test 10/09/17 18:10 10/10/17 01:44 Anion Gap 6.0 mmol/L BUN/Creatinine Ratio 11.2 Blood Urea Nitrogen 11 mg/dl Creatinine 1.01 mg/dl Potassium Level 3.2 mmol/L Sodium Level 138 mmol/L White Blood Count 11.42 K/uL Red Blood Count 4.80 M/uL Hemoglobin 14.4 g/dL Hematocrit 41.8 % Mean Corpuscular Volume 87.1 fL Mean Corpuscular Hemoglobin 30.0 pg Mean Corpuscular Hemoglobin Concent 34.4 g/dl Platelet Count 147 K/uL Mean Platelet Volume 11.2 fL Neutrophils (%) (Auto) 60.9 % Lymphocytes (%) (Auto) 28.6 % Monocytes (%) (Auto) 8.1 % Eosinophils (%) (Auto) 1.8 % Basophils (%) (Auto) 0.4 % Neutrophils # (Auto) 6.96 K/uL Lymphocytes # (Auto) 3.27 K/uL Monocytes # (Auto) 0.92 K/uL Eosinophils # (Auto) 0.20 K/uL Basophils # (Auto) 0.05 K/uL Hemoglobin A1c 5.7 % HbA1c Test 10/10/17 01:44 Hemoglobin A1c 5.7 % (4.5-5.6) H Recent Pertinent Medications Outpatient Anti-diabetic Regimen: * Metformin 850mg PO BID * Lantus 8 units SQ Q HS * A1c = 5.7 % 10/10/17 The patient is currently receiving: * Basal insulin: Lantus 8 units every 24 hours (dosed at bedtime) * Correctional Insulin: Novolog Correction per scale ACHS Goal Range: Low --- mg/dL - High --- mg/dL Correction Factor: --- mg/dL/unit * Prandial insulin: Per carb ratio of 1 unit per --- grams CHO consumed * Oral Agents: Metformin on hold Risk Factors for Insulin Resistance: * Diet: NPO Assessment & Plan ASSESSMENT: 10/10/17 * Type 2 diabetic admitted last evening for atypical chest pain * Patient's BSGs have ranged 80-90's thus far with no insulin or metformin, he is NPO however * A1c reflects good control w/ current regimen * Will continue to hold metformin at this time - may resume when tolerating a diet and no concerns for IV contrast in near future * The current Lantus dose is rather low, however given current BSGs and A1c would not titrate upwards * Will add a Novolog scale should glycemic goals not be met now that metformin is on hold PLAN FOR INPATIENT GLYCEMIC CONTROL: * Continuing Lantus 8 units SQ Q HS * Adding Novolog SQ ACHS * Correction factor 30 mg/dl/unit * Carb ratio 1 unit per 15 grams CHO consumed * Goal range Low 110 mg/dL - High 140 mg/dL * Please note that the plan above was derived based on current level of insulin resistance and hospital stress. These recommendations are appropriate for inpatient admission only. Plan of care upon discharge will need to be reassessed to avoid potential outpatient hypo/hyperglycemia. Thank you.
--- NOTE | 2017-10-10 14:05 | Discharge Instructions ---
Discharge Instructions Date of Service Oct 10, 2017. Admission Reason for Admission: Atypical Chest Pain Discharge Discharge Diagnosis / Problem: Atypical Chest Pain Discharge Goals Goal(s): Decrease discomfort, Increase independence, Learn about illness, Diagnostic testing, Screening Activity Recommendations Activity Limitations: as noted below Lifting Limitations: gradually increase as tolerated Exercise/Sports Limitations: gradually increase as tolerated May Resume Sexual Activity: when tolerated Shower/Bathe: no limitations Driving or Machine Use: no limitations . Instructions / Follow-Up Instructions / Follow-Up Mr. Ferrera was admitted for atypical chest pain/tingling. His cardiac enzymes were negative. There were no acute ekg changes. Stress echo was normal. Follow up recommended with PCP in 2-3 days If there's any further episodes of chest pain, shortness of breath, dizziness etc, he should be brought back to the ER. Thank you Current Hospital Diet Patient's current hospital diet: Discharge Diet Recommended Diet: Diabetes Type 2 Diet Pending Studies Studies pending at discharge: no Laboratory Results Hemoglobin A1c Test 10/10/17 01:44 Range/Units Estimated Average Glucose 117 mg/dl Hemoglobin A1c 5.7 H 4.5-5.6 % Medical Emergencies . Who to Call and When: Medical Emergencies: If at any time you feel your situation is an emergency, please call 911 immediately. . Non-Emergent Contact Non-Emergency issues call your: Primary Care Provider . . "Provider Documentation" section prepared by Cassidy Singleton. .
[2017-10-10 14:18] VITALS: BP 120/62; PULSE 70; TEMP 36.9; O2SAT 94
[2017-10-10 15:29] VITALS: BP 159/108; PULSE 57; TEMP 36.7; O2SAT 97
[2017-10-10] MEDS ORDERED: INSULIN ASPART 100 UNITS/ML 3 ML PEN SC SCH (16:15)
--- NOTE | 2017-10-10 16:18 | Discharge Summary ---
Discharge Summary Date of Service Oct 10, 2017. Discharge Summary Admission Date: Oct 09, 2017 at 22:25 Discharge Date: Oct 10, 2017 Discharge Disposition: Home Principal Diagnosis: Atypical chest pain Problems/Secondary Diagnoses: CAD s/p PCI HLD HTN Mood disorder DM2 Procedures: CHEST ONE VIEW PORTABLE CLINICAL HISTORY: CHEST PAIN COMPARISON STUDY: No previous studies for comparison. FINDINGS: Lung volumes are normal. No pneumothorax or pleural effusion is noted. There is no consolidation. Mild bibasilar opacities favor atelectasis. Cardiomediastinal silhouette is normal. IMPRESSION: No acute cardiopulmonary findings. ECHO: * -- Conclusions -- * 1. Normal stress echocardiogram at 7.2 METS and a peak heart of 56% predicted maximum. * 2. No exercise-induced chest pain. * 3. No EKG changes. * 4. Baseline echocardiogram notes normal left ventricular systolic function and mild LVH. Medication Reconciliation Continued Medications: Amlodipine (Norvasc) 10 Mg Tab 10 MG PO DAILY, TAB Aspirin (Aspirin Chewable) 81 Mg Chew 81 MG PO DAILY Atorvastatin (Lipitor) 40 Mg Tab 40 MG PO HS, TAB Duloxetine Hcl (Cymbalta) 60 Mg Cap 60 MG PO HS, CAP Hydrochlorothiazide (Hctz) 25 Mg Tab 25 MG PO DAILY, TAB Insulin Glargine (Lantus) 100 Unit/Ml Inj 8 UNITS SC HS, VIAL Q-Kpksxwlvxgcb-Oqstf (Deplin 15) 1 Cap Cap 15 MG PO HS Lamotrigine (Lamictal) 100 Mg Tab 200 MG PO DAILY, TAB Levothyroxine Sodium (Synthroid) 25 Mcg Tab 25 MCG PO DAILY, TAB Lisinopril (Zestril) 20 Mg Tab 20 MG PO BID, TAB Metformin Hcl (Glucophage) 850 Mg Tab 850 MG PO BID, TAB Metoprolol Tartrate (Lopressor) (Lopressor) 100 Mg Tab 100 MG PO BID, TAB Potassium Chloride (K-Tab) 20 Meq Tab 20 MEQ PO BID Pumice Stone (Pumice (Flour)) 1 Pow Pow 1 DOSE [id number] Ticagrelor (Brilinta) 90 Mg Tab 90 MG PO BID [Benadryl 50 Mg] () 100 MG PO HS Discharge Exam This is a 57 y/o M w/ a pmh of CAD s/p 3 stents in May 2017, DM2 (on insulin), hypothyroid, HTN who presents from [facility] with a pin prick sensation over the left chest. He was admitted for chest pain rule out. Troponins were negative x 3. The patient underwent a stress echo that was normal. His EKG did not reveal any acute ST changes. He does have a 1st degree heart block (unknown if new or not). He was otherwise asymptomatic. He was discharged with appropriate follow up recommendations. He was advised to report chest pain or other symptoms to his physician. Review of Systems: Constitutional: No fever, No chills Eyes: No worsening of vision ENT: + hearing loss Respiratory: No cough, No sputum, No wheezing, No shortness of breath, No dyspnea on exertion, No dyspnea at rest Abdomen: No pain, No nausea, No vomiting, No diarrhea Genitourinary - Male: No hematuria, No dysuria, No urinary frequency, No urinary urgency Physical Exam: General Appearance: no apparent distress Eyes: PERRL, EOMI ENT: hearing grossly normal Neck: supple, no JVD Respiratory/Chest: lungs clear, normal breath sounds, no respiratory distress, no accessory muscle use Cardiovascular: regular rate, rhythm, no murmur Abdomen / GI: normal bowel sounds, non tender, soft Hospital Course Resident Physician Supervision Note: I interviewed and examined the patient. Discussed with Dr. Rose and agree with findings and plan as documented in the note. Any exceptions or clarifications are listed here: None Documented By: Lucio Escudero feeling ok just was worried that it was his heart vitals noted nad breathing unlabored no pallor or icterus troponins negative, stress echo negative chest pain - atypical - appearing noncardiac, stress echo negative stable for return to halfway Total Time Spent: Greater than 30 minutes This includes examination of the patient, discharge planning, medication reconciliation, and communication with other providers. Discharge Instructions Please refer to the electronic Patient Visit Report (Discharge Instructions) for additional information.
--- NOTE | 2017-10-10 16:35 | ECHOCARDIOGRAM REPORT ---
*NOTICE TO RECEIVING [employer]ENCY This information is strictly Confidential and protected under [place] law. [place] law prohibits you from making any further disclosure of this information unless further disclosure is expressly permitted by the written consent of the person to whom it pertains or is authorized by law. A general authorization for the release of medical or other information is not sufficient for this purpose. Hospital accepts no responsibility if the information is made available to any other person, INCLUDING THE PATIENT. Interpretation Summary * Name: AMBER HUNTLEY [id number] Study Date: 10/10/2017 07:16 AM BP: 156/82 mmHg * Patient Location: .2E\S\E205\S\1 HR: 56 * : 1960 (M/d/yyyy) Gender: Male Height: 75 in * Age: 57 yrs Ethnicity: [place] Weight: 228 lb * Ordering Physician: Ryan Ye * Referring Physician: Leia MELGAR * Performed By: Maggie Herrera RDCS * * Reason For Study: Chest pain * BSA: 2.3 m2 * -- Conclusions -- * Left ventricular systolic function is normal. * No regional wall motion abnormalities noted. * Ejection Fraction = 60-65%. * There is mild concentric left ventricular hypertrophy. * No significant valvular pathology. Procedure Details * A complete two-dimensional transthoracic echocardiogram was performed (2D, M-mode, Doppler and color flow Doppler). Left Ventricle * The left ventricle is normal in size. * There is mild concentric left ventricular hypertrophy. * Ejection Fraction = 60-65%. * Left ventricular systolic function is normal. * No regional wall motion abnormalities noted. Right Ventricle * The right ventricle is normal size. * The right ventricular systolic function is normal as assessed by tricuspid annular plane systolic excursion (TAPSE) (normal >1.5 cm). Atria * The left atrium is borderline dilated. * Right atrium not well visualized. * There is no evidence of atrial septal defect, but resolution does not allow assessment for a patent foramen ovale. Mitral Valve * The mitral valve anatomy is normal. * There is no mitral valve stenosis. * Significant mitral regurgitation is absent. Tricuspid Valve * The tricuspid valve anatomy is normal. * There is no tricuspid stenosis. * Significant tricuspid regurgitation is absent. Aortic Valve * The aortic valve is trileaflet. * The aortic valve opens well. * Aortic stenosis is absent. * No aortic regurgitation is present. Pulmonic Valve * The pulmonary valve is not well seen, but the Doppler examination is normal without significant regurgitation or stenosis. Great Vessels * The aortic root is normal size. * The pulmonary is not well visualized. Pericardium/Pleural * There is no pericardial effusion. Great Vessels * Normal inferior vena cava size and collapsability with sniff indicates a normal right atrial pressure of 3 mmHg MMode 2D Measurements and Calculations IVSd 1.1 cm LVIDd 5.0 cm LVIDs 3.4 cm LVPWd 1.2 cm IVS/LVPW 0.93 FS 31.5 % EDV(Teich) 119.2 ml ESV(Teich) 48.7 ml EF(Teich) 59.2 % EDV(cubed) 126.3 ml ESV(cubed) 40.6 ml EF(cubed) 67.9 % LV mass(C)d 219.3 grams LV mass(C)dI 94.5 grams/m\S\2 SV(Teich) 70.5 ml SI(Teich) 30.4 ml/m\S\2 SV(cubed) 85.7 ml SI(cubed) 36.9 ml/m\S\2 Ao root diam 4.0 cm Ao root area 12.7 cm\S\2 ACS 1.9 cm LA dimension 4.0 cm asc Aorta Diam 3.8 cm LA/Ao 0.99 LVOT diam 2.0 cm LVOT area 3.1 cm\S\2 LVAd ap4 29.4 cm\S\2 LVLd ap4 7.3 cm EDV(MOD-sp4) 95.8 ml EDV(sp4-el) 100.5 ml LVAs ap4 16.2 cm\S\2 LVLs ap4 6.2 cm ESV(MOD-sp4) 35.9 ml ESV(sp4-el) 35.7 ml EF(MOD-sp4) 62.5 % EF(sp4-el) 64.5 % LVAd ap2 27.5 cm\S\2 LVLd ap2 7.3 cm EDV(MOD-sp2) 87.4 ml EDV(sp2-el) 88.6 ml LVAs ap2 14.9 cm\S\2 LVLs ap2 5.7 cm ESV(MOD-sp2) 32.3 ml ESV(sp2-el) 33.4 ml EF(MOD-sp2) 63.0 % EF(sp2-el) 62.4 % LVLd %diff -0.24 % EDV(MOD-bp) 92.2 ml LVLs %diff -9.32 % ESV(MOD-bp) 35.0 ml EF(MOD-bp) 62.1 % SV(MOD-sp4) 59.9 ml SI(MOD-sp4) 25.8 ml/m\S\2 SV(MOD-sp2) 55.1 ml SI(MOD-sp2) 23.8 ml/m\S\2 SV(MOD-bp) 57.2 ml SI(MOD-bp) 24.7 ml/m\S\2 SV(sp4-el) 64.8 ml SI(sp4-el) 27.9 ml/m\S\2 SV(sp2-el) 55.3 ml SI(sp2-el) 23.8 ml/m\S\2 Doppler Measurements and Calculations MV E max kye 61.1 cm/sec MV A max kye 66.0 cm/sec MV E/A 0.93 MV dec time 0.23 sec Ao V2 max 135.7 cm/sec Ao max PG 7.4 mmHg Ao max PG (full) 0.91 mmHg SINGH(V,A) 2.9 cm\S\2 SINGH(V,D) 2.9 cm\S\2 AI max yke 370.6 cm/sec AI max PG 54.9 mmHg AI dec slope 75.8 cm/sec\S\2 AI P1/2t 1432.6 msec LV V1 max PG 6.5 mmHg LV V1 max 127.1 cm/sec PA V2 max 86.9 cm/sec PA max PG 3.0 mmHg PA acc slope 440.2 cm/sec\S\2 PA acc time 0.16 sec PA pr(Accel) 6.1 mmHg
--- NOTE | 2017-10-10 16:41 | EXERCISE STRESS ECHO ---
*NOTICE TO RECEIVING [employer]Y This information is strictly Confidential and protected under [place] law. [place] law prohibits you from making any further disclosure of this information unless further disclosure is expressly permitted by the written consent of the person to whom it pertains or is authorized by law. A general authorization for the release of medical or other information is not sufficient for this purpose. Hospital accepts no responsibility if the information is made available to any other person, INCLUDING THE PATIENT. Interpretation Summary * Name: AMBER HUNTLEY [id number] Study Date: 10/10/2017 11:15 AM BP: 170/82 mmHg * Patient Location: .2E\S\E205\S\1 HR: 50 * : 1960 (M/d/yyyy) Gender: Male Height: 75 in * Age: 57 yrs Ethnicity: CA Weight: 219 lb * Ordering Physician: Farhan Ortega. * Referring Physician: Leia MELGAR * Performed By: Cecilia Baig RDCS * * Reason For Study: CHEST PAIN * BSA: 2.3 m2 * -- Conclusions -- * 1. Normal stress echocardiogram at 7.2 METS and a peak heart of 56% predicted maximum. * 2. No exercise-induced chest pain. * 3. No EKG changes. * 4. Baseline echocardiogram notes normal left ventricular systolic function and mild LVH. Procedure Details * ECHOEX, CPT #44933 Left Ventricle * The left ventricle is normal in size. * There is mild concentric left ventricular hypertrophy. * Left ventricular systolic function is normal. * Resting wall motion: Normal. Stress wall motion: Appropriate increase in Left ventricular systolic function and decrease in cavity size. No stress induced segmental wall motion abnormalities. Stress Parameters * Normal baseline electrocardiogram. * Stress ECG: No ST changes. No arrhythmias. * The stress portion of this study was personally supervised by the undersigned interpreting physician. * Rest heart rate was '50' BPM. * Rest blood pressure was '170/82' * Maximum heart rate achieved was 92 bpm. * Maximum heart rate was 56 % of maximum age-predicted heart rate. * Maximum blood pressure was '170/82' * Total exercise time was '6:13' * Maximum exercise MET level achieved was '7.20' METS * Maximum treadmill speed was '3.30' miles per hour. * Maximum treadmill elevation was '14.00'% grade. * Exercise was terminated due to 'FATIGUE'
[2017-10-10] MEDS ORDERED: INSULIN GLARGINE SOLOSTAR 100 UNITS/ML 3 ML PEN SC SCH (21:00)
[2017-10-10] MEDS ORDERED: ATORVASTATIN 20 MG TAB PO SCH (21:00)
[2017-10-10] MEDS ORDERED: DULOXETINE HCL 60 MG CAP PO SCH (21:00)
== END 2017-10-10 15:51 | disposition home or self-care (01) ==
LOC: C.EDB 17:31 → C.2E 22:25 → ENRESERV 22:42
PROVIDERS: ADMIT Hospitalist; ATTEND Hospitalist
DX: R07.89 Other chest pain (principal); E87.6 Hypokalemia; I25.10 Atherosclerotic heart disease of native coronary artery without angina pectoris; I10 Essential (primary) hypertension; F39 Unspecified mood [affective] disorder; E11.9 Type 2 diabetes mellitus without complications; E03.9 Hypothyroidism, unspecified; E78.5 Hyperlipidemia, unspecified; Z98.61 Coronary angioplasty status; Z79.82 Long term (current) use of aspirin; Z79.4 Long term (current) use of insulin

== ENCOUNTER 2019-05-16 15:36 | Observation (INO) ==
[2019-05-16] MEDS ORDERED: NITROGLYCERIN 2% OINTMENT 30GM TUBE EXT STA (16:18)
[2019-05-16] MEDS ORDERED: ACETAMINOPHEN 500 MG TAB PO STA (16:18)
[2019-05-16] MEDS ORDERED: SODIUM CHLORIDE 0.9% 500 ML IV SCH (16:30)
[2019-05-16 16:34] LABS: Alanine Aminotransferase 19 U/L (12-78); Aspartate Aminotransferase 18 U/L (15-37); Blood Urea Nitrogen 20 mg/dl (7-18); Calcium 9.2 mg/dl (8.5-10.1); Carbon Dioxide 22 mmol/L (21-32); Chloride 107 mmol/L (98-107); Creatinine Clr Calc Pharmacy 88.7 ml/min; Est GFR (African American) 79.4; Est GFR (Non-African American) 68.5; Glucose 89 mg/dl (70-99); Lipase 81 U/L (73-393); Magnesium 1.9 mg/dl (1.8-2.4); Potassium 3.7 mmol/L (3.5-5.1); Sodium 139 mmol/L (136-145)
[2019-05-16 16:39] LABS: Albumin Globulin Ratio 1.2 (0.9-2); Alkaline Phosphatase 79 U/L (45-117); Bilirubin,Total 0.8 mg/dl (0.2-1); Globulin 3.5 gm/dl (2.5-4.0); Total Protein 7.5 gm/dl (6.4-8.2); Troponin I < 0.015 ng/ml (0-0.045)
[2019-05-16 16:41] LABS: Basophils # (auto) 0.04 K/uL (0-0.2); Basophils % (auto) 0.3 %; Eosinophils # (auto) 0.19 K/uL (0-0.5); Eosinophils % (auto) 1.7 %; Hemoglobin 15.3 g/dL (14.0-18.0); Immature Granulocytes # (auto) 0.02 K/uL (0.00-0.02); Immature Granulocytes % (auto) 0.2 %; Lymphocytes # (auto) 1.79 K/uL (1.2-3.4); Lymphocytes % (auto) 15.6 %; Mean Corpuscular Hgb Conc 34.8 g/dL (32-36); Mean Corpuscular Volume 89.2 fL (80-100); Mean Platelet Volume 11.9 fL (7.4-10.4); Monocytes # (auto) 1.08 K/uL (0.11-0.59); Monocytes % (auto) 9.4 %; Neutrophils # (auto) 8.38 K/uL (1.4-6.5); Neutrophils % (auto) 72.8 %; Platelet Count 125 K/uL (130-400); RDW Standard Deviation 42.6 fL (36.4-46.3); Red Blood Count 4.93 M/uL (4.7-6.1)
--- NOTE | 2019-05-16 16:54 | XRay Report ---
XR chest 1V portable CLINICAL HISTORY: 58 years-old Male presenting with Chest Pain, nausea. TECHNIQUE: Portable upright AP view of the chest was obtained. COMPARISON: 10/09/2017. FINDINGS: Atherosclerosis of the aortic arch. Cardiac silhouette borderline enlarged. No focal opacity. No larg e effusion or pneumothorax. Degenerative changes of the thoracic spine. Upper abdomen normal. IMPRESSION: 1. Borderline cardiomegaly. No other convincing evidence of acute cardiopulmonary disease. Electronically signed by: Ciro Hodges M.D. 05/16/2019 4:53 PM
[2019-05-16 17:26] LABS: INR 1.2 (0.9-1.1); Partial Thromboplastin Time 27.6 Seconds (21.0-31.0); Prothrombin Time 11.8 Seconds (9.0-12.0)
--- NOTE | 2019-05-16 17:59 | History & Physical Report ---
Date of Service May 16, 2019 Assessment & Plan (1) S/P coronary artery stent placement: (2) Precordial chest pain: Mr. Ferrera is a 58 yo prisoner with a PMHx significant for CAD s/p stent placement x 3 in 2017 who was sent to the ED by the senior living for further evaluation of left sided chest pain with associated nausea, diaphoresis and SOB that improved with sublingual nitroglycerin. ED course: On arrival troponin was undetectable. EKG with sinus bradycardia, 1st degree AV diane block, RBBB, pathological Q waves in the inferior leads, T wave inversion, but not acute ST segment changes. He was given tylenol 1,000mg, a nitroglycerin patch, and a 500ml bolus of normal saline. Chest pain -history of prior TN and vascular risk factors (HTN, HLD, DM, and tobacco use) places patient at high risk for coronary ischemia -improvement of pain with nitroglycerin, and associated nausea, diaphoresis and SOB are concerning for angina -troponin undetectable on admission; repeat levels ordered q6h x2 -EKG on arrival showed sinus bradycardia with 1 degree AV diane block, RBBB, pathologic Q waves in the inferior leads and wave inversion in the lateral leads, although no acute ST segment changes -cardiac monitoring -magnesium level ordered -most recent stress ECHO in October 2017 was unremarkable -if trops negative x2, consider stress ECHO in morning, as patient has high risk profile Hypertension - BP 197/95; ordered 10mg IV hydralazine STAT - hydralazine ordered prn for systolic pressures > 170 - continue home amlodipine, lisinopril Hyperlipidemia -continue home atorvastatin Diabetes mellitus -patient reports good control per most recent A[facility] (although he could not recall exact value) -considering patient will likely only be in hospital overnight, we will continue his bedtime lantus insulin, 8 units, SQ and metformin 850mg -sliding scale ordered prn Hypothyroidism - continue home levothyroxine 25 mcg, daily Dispo: Tele DVT: bilateral SCDs Diet: Diabetic, Heart Healthy Code: Full (3) HLD (hyperlipidemia): (4) HTN (hypertension): (5) DM2 (diabetes mellitus, type 2): (6) Hypothyroid: (7) History of coronary artery disease: (8) Abnormal EKG: History of Present Illness Primary Care Provider: TALIA Dupree Mr. Ferrera is a 58 yo male prisoner with a PMHx of CAD s/p stent placement x3 in 2017 who was sent to the ED at the direction of the senior living for further evaluation of chest pain he first noticed upon wakening this morning at 7:00am. The chest pain was L sided with radiation down the left arm. It was stabbing in quality; not positional or worse with inspiration. Associated symptoms include diaphoresis, nausea but no vomiting, lightheadedness and SOB. Mr. Ferrera was evaluated by the senior living physician at 2:00pm today at which time an EKG was reportedly unremarkable. He was given ASA 324mg and sublingual nitroglycerin x3, which reduced his chest discomfort before being sent to the ED. Mr. Ferrera reports chest pain to be 2/10 in severity at present and endorses a new headache that started after taking the nitroglycerin. He has many cardiovascular risk factors including hypertension, hyperlipidemia, diabetes mellitus, and >60 pack year history of tobacco use (quit one year ago). ED course: On arrival troponin was undetectable. EKG with sinus bradycardia, 1st degree AV diane block, RBBB, pathological Q waves in the inferior leads, T wave inversion, but not acute ST segment changes. He was given tylenol 1,000mg, a nitroglycerin patch, and a 500ml bolus of normal saline. Allergies Allergy/AdvReac Type Severity Reaction Status Date / Time No Known Allergies Allergy Unverified 05/16/19 17:22 Home Medications Home Medications Medication Instructions Recorded Confirmed Type amlodipine 10 mg PO DAILY 05/16/19 05/16/19 History aspirin [Aspirin Childrens] 81 mg PO DAILY 05/16/19 05/16/19 History atorvastatin 40 mg PO HS 05/16/19 05/16/19 History diphenhydramine HCl [Benadryl] 50 mg PO HS 05/16/19 05/16/19 History fluoxetine 60 mg PO HS 05/16/19 05/16/19 History ibuprofen 600 mg PO TID PRN 05/16/19 05/16/19 History insulin glargine [Lantus U-100 8 unit SUBCUT HS 05/16/19 05/16/19 History Insulin] levothyroxine 25 mcg PO DAILY 05/16/19 05/16/19 History lisinopril 20 mg PO BID 05/16/19 05/16/19 History metformin 850 mg PO BID 05/16/19 05/16/19 History metoprolol tartrate 100 mg PO BID 05/16/19 05/16/19 History potassium chloride 20 meq PO DAILY 05/16/19 05/16/19 History Past Med/Surg History Medical History HLD (hyperlipidemia) (Chronic) HTN (hypertension) (Chronic) DM2 (diabetes mellitus, type 2) (Chronic) Hypothyroid (Chronic) Social History Preferred Language: Sinhala Communication Ability: Effective Dean Of Admissions Required: No Beliefs That Will Affect Care: None marital status: single Current Living Situation: Other Current Living Situation Comment: [facility] Other Information That Helps Us Care for You: No Feels Safe at Home: Yes Safety Concerns: Feels Safe At This Time Smoking Status: Current every day smoker Tobacco Type: cigarettes ; Age Started Using Tobacco: 13 ; Age Quit Using Tobacco: 57 ; packs per day: 1.5 ; Years Smoked: 44 ; Do You Dip or Chew Tobacco: No ; Number of Years Since Quit: 1 ; Second Hand Exposure: No ; Tobacco Cessation Education Requested by Patient: No Hx Alcohol Use: No Hx Substance Use: No Review of Systems Constitutional: + sweats Respiratory: + dyspnea Cardiovascular: + chest pain, + radiating jaw, neck or arm pain and + lightheadedness; no palpitations and no edema Gastrointestinal: + nausea; no vomiting Physical Exam Physical Exam: Exam as done by Priscilla Sky, DO: Constitutional: WD/WN, vitals as above no acute distress Handcuffed to bed Eyes: + anicteric sclerae Wearing glasses ENMT: external ear and nose normal, oropharynx normal Neck: trachea midline Respiratory: normal respiratory effort, lungs clear to auscultation Auscul tation: no crackles, no rales, no rhonchi, no wheezes and no pleural rub Cardiovascular: Rate/Rhythm: regular rhythm and + bradycardic Heart Sounds: normal S1 and normal S2; no click, no gallop, no murmur and no cardiac rub Palpation: no thrill Vessels: no carotid bruit Extremities: no pedal edema Chest pain reproducible on exam Gastrointestinal (Abdomen): normal bowel sounds, soft, nontender, no hepatosplenomegaly Inspection/Auscultation: abdomen not distended Percussion/Palpation: abdomen soft; abdomen nontender Musculoskeletal: Head/Neck/Chest: normocephalic and head atraumatic Neg for peripheral LE edema, + pedal pulses Skin: no rashes, warm and dry Neurologic: awake; not confused Speech / Cognition: normal speech Psychiatric: A+Ox3, euthymic affect Lymphatic: Exam as done by Priscilla Sky DO Results & Data Vital Signs (Past 12 Hours) Vital Signs Temp Pulse Resp BP Pulse Ox 05/16/19 16:50 50 L 20 96 05/16/19 16:40 48 L 19 05/16/19 16:30 57 L 15 97 05/16/19 16:23 96 05/16/19 16:20 53 L 28 H 100 05/16/19 16:10 52 L 13 97 05/16/19 16:00 51 L 18 97 05/16/19 15:58 36.6 C 50 L 16 197/95 H 96 05/16/19 15:50 57 L 20 97 05/16/19 15:44 54 L 21 98 05/16/19 15:43 53 L 17 167/95 H 97 Laboratory Results 05/16/19 05/16/19 05/16/19 Range/Units 17:00 15:56 15:56 WBC (4.8-10.8) K/uL RBC (4.7-6.1) M/uL Hgb (14.0-18.0) g/dL Hct (42-52) % MCV (80-100) fL MCH (25-34) pg MCHC (32-36) g/dL RDW Std Deviation (36.4-46.3) fL RDW Coeff of Vonda (11.5-14.5) % Plt Count (130-400) K/uL MPV (7.4-10.4) fL Immature Gran % (Auto) % Neut % (Auto) % Lymph % (Auto) % Cameron % (Auto) % Eos % (Auto) % Baso % (Auto) % Immature Gran # (Auto) (0.00-0.02) K/uL Neut # (Auto) (1.4-6.5) K/uL Lymph # (Auto) (1.2-3.4) K/uL Cameron # (Auto) (0.11-0.59) K/uL Eos # (Auto) (0-0.5) K/uL Baso # (Auto) (0-0.2) K/uL PT 11.8 Cancelled INR 1.2 H Cancelled APTT 27.6 Cancelled PTT Ratio 1.0 Cancelled Sodium 139 (136-145) mmol/L Potassium 3.7 (3.5-5.1) mmol/L Chloride 107 (98-107) mmol/L Carbon Dioxide 22 (21-32) mmol/L Anion Gap 10.0 (3-11) BUN 20 H (7-18) mg/dl Creatinine 1.16 (0.6-1.4) mg/dl Est Cr Clr Drug Dosing 88.7 ml/min Est GFR ( Amer) 79.4 Est GFR (Non-Af Amer) 68.5 BUN/Creatinine Ratio 17.0 (10-20) Glucose 89 (70-99) mg/dl Calcium 9.2 (8.5-10.1) mg/dl Magnesium 1.9 (1.8-2.4) mg/dl Total Bilirubin 0.8 (0.2-1) mg/dl AST 18 (15-37) U/L ALT 19 (12-78) U/L Alkaline Phosphatase 79 (45-117) U/L Troponin I < 0.015 (0-0.045) ng/ml Total Protein 7.5 (6.4-8.2) gm/dl Albumin 4.0 (3.4-5.0) gm/dl Globulin 3.5 (2.5-4.0) gm/dl Albumin/Globulin Ratio 1.2 (0.9-2) Lipase 81 (73-393) U/L 05/16/19 Range/Units 15:56 WBC 11.50 H (4.8-10.8) K/uL RBC 4.93 (4.7-6.1) M/uL Hgb 15.3 (14.0-18.0) g/dL Hct 44.0 (42-52) % MCV 89.2 (80-100) fL MCH 31.0 (25-34) pg MCHC 34.8 (32-36) g/dL RDW Std Deviation 42.6 (36.4-46.3) fL RDW Coeff of Vonda 13.0 (11.5-14.5) % Plt Count 125 L (130-400) K/uL MPV 11.9 H (7.4-10.4) fL Immature Gran % (Auto) 0.2 % Neut % (Auto) 72.8 % Lymph % (Auto) 15.6 % Cameron % (Auto) 9.4 % Eos % (Auto) 1.7 % Baso % (Auto) 0.3 % Immature Gran # (Auto) 0.02 (0.00-0.02) K/uL Neut # (Auto) 8.38 H (1.4-6.5) K/uL Lymph # (Auto) 1.79 (1.2-3.4) K/uL Cameron # (Auto) 1.08 H (0.11-0.59) K/uL Eos # (Auto) 0.19 (0-0.5) K/uL Baso # (Auto) 0.04 (0-0.2) K/uL PT INR APTT PTT Ratio Sodium (136-145) mmol/L Potassium (3.5-5.1) mmol/L Chloride (98-107) mmol/L Carbon Dioxide (21-32) mmol/L Anion Gap (3-11) BUN (7-18) mg/dl Creatinine (0.6-1.4) mg/dl Est Cr Clr Drug Dosing ml/min Est GFR ( Amer) Est GFR (Non-Af Amer) BUN/Creatinine Ratio (10-20) Glucose (70-99) mg/dl Calcium (8.5-10.1) mg/dl Magnesium (1.8-2.4) mg/dl Total Bilirubin (0.2-1) mg/dl AST (15-37) U/L ALT (12-78) U/L Alkaline Phosphatase (45-117) U/L Troponin I (0-0.045) ng/ml Total Protein (6.4-8.2) gm/dl Albumin (3.4-5.0) gm/dl Globulin (2.5-4.0) gm/dl Albumin/Globulin Ratio (0.9-2) Lipase (73-393) U/L Medications Administered Current Inpatient Medications Hydralazine HCl (Hydralazine Hcl) 10 mg IV PRN STA Stop: 05/16/19 18:16 Supervising Physician Co-Signing Physician Notes Pt seen and examined by me. Denies chest pain or SOB currently. States this was new today around 7a. He did get his AM meds today, although he is uncertain what medications that actually entails. "I just take what they give me." Gerald ating PO without issue. He has had a headache since taking nitro at facility. This is improved s/p acetaminophen. Pt denies fever, abd pain, c/d, LE pain or swelling. Noted nausea w/o emesis and diaphoresis earlier as well, since resolved. Pertinent positives and negatives reviewed in HPI--all others negative Agree with HPI/ROS as noted by resident See above for my exam in PE section Agree with plan as outlined above Chest pain, concerning given hx of stents x3 in 2017 EKG with lateral ischemia, was not seen on most recent EKG, but has been seen on others prior Trop neg x1, serials pending t/c stress ECHO in AM Stress ECHO 10/2017 was WNL Resident Activity Tracking Resident Involvement: Resident Care Provided Care Provided: Adult Hospital Medicine
[2019-05-16] MEDS ORDERED: HydrALAZINE HCL 20 MG/ML VIAL IV STA ×3 (18:05→18:51)
--- NOTE | 2019-05-16 18:30 | Emergency Department Note ---
Entered by Brii Knott acting as a scribe for History of Present Illness General Chief complaint: Chest Pain Stated complaint: CHEST PAIN Time Seen by Provider: 05/16/19 16:07 Source: patient Mode of arrival: EMS Limitations: no limitations History of Present Illness Provider complaint: Chest pain Onset (ago): hour(s) (around 0700 today) Location: chest and left Radiation: non-radiation Pain Consistency: + other (episode) Maximum Pain Intensity: 8 Current Pain Intensity: 2 Quality: + stabbing and + other (pain) Relieved By: + medication (baby Aspirin, Nitroglycerin) Associated symptoms: + diaphoresis, + headaches, + nausea/vomiting and + other (Additional symptoms: lightheadedness, left arm tingling, left-sided head and neck pain); no shortness of breath Treatments prior to arrival: aspirin and other (Nitroglycerin) The patient is a 58 year old male with a history of 3 coronary artery stents, hypertension, hyperlipidemia, diabetes, and hypothyroidism who presents to the Emergency Room with complaints of an episode of left-sided chest pain starting when he woke up this morning around 0700. The patient describes his pain as a stabbing pain that does not radiate. At its worst, he rated it an 8/10. He states that his pain has improved since being administered 4 baby Aspirin and 3 doses of Nitroglycerin around 1415. He currently rates it a 2 or 3/10. He also complains of lightheadedness, a headache, nausea, diaphoresis, left arm tingling, and left-sided head and neck pain. He adds that he hit his head before going to the [facility] today and is unsure if he passed out. He denies any shortness of breath. The patient mentions that has been more stressed recently. He states that he has not exerted himself over the past couple of days. He also indicates that he is unsure if he has had prior MIs. Home Medications Home Medications Medication Instructions Recorded Confirmed Type amlodipine 10 mg PO DAILY 05/16/19 05/16/19 History aspirin [Aspirin Childrens] 81 mg PO DAILY 05/16/19 05/16/19 History atorvastatin 40 mg PO HS 05/16/19 05/16/19 History diphenhydramine HCl [Benadryl] 50 mg PO HS 05/16/19 05/16/19 History fluoxetine 60 mg PO HS 05/16/19 05/16/19 History ibuprofen 600 mg PO TID PRN 05/16/19 05/16/19 History insulin glargine [Lantus U-100 8 unit SUBCUT HS 05/16/19 05/16/19 History Insulin] levothyroxine 25 mcg PO DAILY 05/16/19 05/16/19 History lisinopril 20 mg PO BID 05/16/19 05/16/19 History metformin 850 mg PO BID 05/16/19 05/16/19 History metoprolol tartrate 100 mg PO BID 05/16/19 05/16/19 History potassium chloride 20 meq PO DAILY 05/16/19 05/16/19 History Allergies Allergy/AdvReac Type Severity Reaction Status Date / Time No Known Allergies Allergy Unverified 05/16/19 17:22 Past Med/Surg History Medical History HLD (hyperlipidemia) (Chronic) HTN (hypertension) (Chronic) DM2 (diabetes mellitus, type 2) (Chronic) Hypothyroid (Chronic) Social History Preferred Language: Nepali Communication Ability: Effective Roof Fitter Required: No Beliefs That Will Affect Care: None marital status: single Current Living Situation: Other Current Living Situation Comment: [facility] Other Information That Helps Us Care for You: No Feels Safe at Home: Yes Safety Concerns: Feels Safe At This Time Smoking Status: Current every day smoker Tobacco Type: cigarettes ; Age Started Using Tobacco: 13 ; Age Quit Using Tobacco: 57 ; packs per day: 1.5 ; Years Smoked: 44 ; Do You Dip or Chew Tobacco: No ; Number of Years Since Quit: 1 ; Second Hand Exposure: No ; Tobacco Cessation Education Requested by Patient: No Hx Alcohol Use: No Hx Substance Use: No Review of Systems See HPI for pertinent positives & negatives. and A total of 10 systems reviewed and were otherwise negative Physical Exam Vital Signs Vital Signs - 24 hr 05/16/19 15:43 05/16/19 15:44 05/16/19 15:50 Temperature Temperature Source Sepsis Recent Fever Within 48 Hours Sepsis Action Taken by Nursing Pulse Rate 53 L 54 L 57 L Pulse Rate from SpO2 Sensor 53 L 54 L 52 L Respiratory Rate 17 21 20 Respiratory Effort / Characteristics Respiratory Depth Blood Pressure 167/95 H Blood Pressure Mean 119 Pulse Oximetry 97 98 97 Oxygen Delivery Method 05/16/19 15:58 05/16/19 16:00 05/16/19 16:10 Temperature 36.6 C Temperature Source Oral Sepsis Recent Fever Within 48 Hours No Sepsis Action Taken by Nursing No Action Required Pulse Rate 50 L 51 L 52 L Pulse Rate from SpO2 Sensor 51 L 52 L Respiratory Rate 16 18 13 Respiratory Effort / Characteristics Non-Labored Respiratory Depth Normal Blood Pressure 197/95 H Blood Pressure Mean 129 Pulse Oximetry 96 97 97 Oxygen Delivery Method Room Air 05/16/19 16:20 05/16/19 16:23 05/16/19 16:30 Temperature Temperature Source Sepsis Recent Fever Within 48 Hours Sepsis Action Taken by Nursing Pulse Rate 53 L 57 L Pulse Rate from SpO2 Sensor 54 L 55 L Respiratory Rate 28 H 15 Respiratory Effort / Characteristics Respiratory Depth Blood Pressure Blood Pressure Mean Pulse Oximetry 100 96 97 Oxygen Delivery Method Room Air 05/16/19 16:40 05/16/19 16:50 05/16/19 16:53 Temperature Temperature Source Sepsis Recent Fever Within 48 Hours Sepsis Action Taken by Nursing Pulse Rate 48 L 50 L 50 L Pulse Rate from SpO2 Sensor 50 L 50 L Respiratory Rate 19 20 20 Respiratory Effort / Characteristics Respiratory Depth Blood Pressure 192/94 H Blood Pressure Mean 126 Pulse Oximetry 96 96 Oxygen Delivery Method 05/16/19 17:00 05/16/19 17:01 05/16/19 17:10 Temperature Temperature Source Sepsis Recent Fever Within 48 Hours Sepsis Action Taken by Nursing Pulse Rate 50 L 54 L 47 L Pulse Rate from SpO2 Sensor 51 L 51 L 48 L Respiratory Rate 16 14 14 Respiratory Effort / Characteristics Respiratory Depth Blood Pressure 175/107 H Blood Pressure Mean 129 Pulse Oximetry 98 95 98 Oxygen Delivery Method 05/16/19 17:20 05/16/19 17:30 05/16/19 17:31 Temperature Temperature Source Sepsis Recent Fever Within 48 Hours Sepsis Action Taken by Nursing Pulse Rate 53 L 52 L 48 L Pulse Rate from SpO2 Sensor 53 L 52 L Respiratory Rate 21 16 18 Respiratory Effort / Characteristics Respiratory Depth Blood Pressure 222/105 H Blood Pressure Mean 144 Pulse Oximetry 94 94 Oxygen Delivery Method 05/16/19 17:40 05/16/19 17:50 05/16/19 18:00 Temperature Temperature Source Sepsis Recent Fever Within 48 Hours Sepsis Action Taken by Nursing Pulse Rate 57 L 48 L 51 L Pulse Rate from SpO2 Sensor 53 L 48 L 52 L Respiratory Rate 18 14 17 Respiratory Effort / Characteristics Respiratory Depth Blood Pressure 204/102 H Blood Pressure Mean 136 Pulse Oximetry 98 97 97 Oxygen Delivery Method 05/16/19 18:01 Temperature Temperature Source Sepsis Recent Fever Within 48 Hours Sepsis Action Taken by Nursing Pulse Rate 48 L Pulse Rate from SpO2 Sensor 48 L Respiratory Rate 16 Respiratory Effort / Characteristics Respiratory Depth Blood Pressure Blood Pressure Mean Pulse Oximetry 99 Oxygen Delivery Method GENERAL: Patient is in no acute distress. HEENT: No acute trauma, normocephalic atraumatic, mucous membranes moist, no nasal congestion, no scleral icterus. NECK: No stridor, no adenopathy, no meningismus, trachea is midline. Nontender posterior c-spine. CHEST: Nontender chest wall. LUNGS: Clear to auscultation bilaterally, no wheeze, no rhonchi, breath sounds equal. HEART: Without murmurs gallops or rubs, regular rate and rhythm. ABDOMEN: Soft, nontender, bowel sounds positive, no hernias, no peritonitis. EXTREMITIES: No cyanosis or edema, full range of motion of all the joints without pain or difficulty, no signs for acute trauma. NEUROLOGIC: Oriented x 3, no acute motor or sensory deficits, no focal weakness. SKIN: No rash, no jaundice, no diaphoresis. Course 161: The patient was evaluated in room B6, and a complete history and physical examination were performed. 1658: I reviewed the patient's case with Dr. Sky - Hospitalist, [facility]. Dr. Sky will evaluate the patient for further management. 1700: On reevaluation, the patient is resting. I discussed the results and findings with him. The patient verbalized agreement of the treatment plan. Consultations Consultation #1: I reviewed the patient's case with Dr. Sky - Hospitalist, [facility]. Dr. Sky will evaluate the patient for further management. Time: 16:58 Administered Medications Atorvastatin Calcium (Lipitor) 40 mg PO [facility] Stop: 06/15/19 20:59 Last Admin: 05/16/19 21:06 Dose: 40 mg Documented by: [id number] Diphenhydramine HCl (Benadryl Capsule) 50 mg PO HS [facility] Stop: 06/15/19 20:59 Last Admin: 05/16/19 21:06 Dose: 50 mg Documented by: [id number] Fluoxetine HCl (Prozac) 60 mg PO HS [facility] Stop: 06/15/19 20:59 Last Admin: 05/16/19 21:08 Dose: 60 mg Documented by: [id number] Ibuprofen (Motrin) 600 mg PO TID PRN PRN Reason: Pain Stop: 06/15/19 18:50 Last Admin: 05/16/19 20:34 Dose: 600 mg Documented by: [id number] Insulin Aspart (Novolog Flexpen) 0 units SC ACHS [facility] Stop: 06/15/19 20:59 Last Admin: 05/16/19 21:04 Dose: Not Given Documented by: [id number] Cosigned by: [id number] Insulin Glargine (Lantus Solostar Pen) 8 units SQ HS [facility] Stop: 06/15/19 20:59 Last Admin: 05/16/19 21:05 Dose: 8 units Documented by: [id number] Cosigned by: [id number] Lisinopril (Zestril) 20 mg PO BID [facility] Stop: 06/15/19 20:59 Last Admin: 05/16/19 21:07 Dose: 20 mg Documented by: [id number] Metformin HCl (Glucophage) 850 mg PO BIDM [facility] Stop: 06/15/19 19:29 Last Admin: 05/16/19 21:08 Dose: 850 mg Documented by: [id number] Metoprolol Tartrate (Lopressor) 100 mg PO BID [facility] Stop: 06/15/19 20:59 Last Admin: 05/16/19 21:06 Dose: 100 mg Documented by: [id number] Discontinued Medications Acetaminophen (Tylenol) 1,000 mg PO NOW STA Stop: 05/16/19 16:19 Last Admin: 05/16/19 16:31 Dose: 1,000 mg Documented by: [id number] Hydralazine HCl (Hydralazine Hcl) 10 mg IV NOW STA Stop: 05/16/19 18:06 Last Admin: 05/16/19 18:16 Dose: 10 mg Documented by: [id number] Sodium Chloride (Nss) 500 mls @ 999 mls/hr IV .Q31M [facility] Stop: 05/16/19 17:00 Last Infusion: 05/16/19 17:52 Dose: 0 mls/hr Documented by: [id number] Admin: 05/16/19 16:32 Dose: 999 mls/hr Documented by: [id number] Nitroglycerin (Nitro-Bid 2%) 1 inch EXT NOW STA Stop: 05/16/19 16:19 Last Admin: 05/16/19 16:31 Dose: 1 inch Documented by: [id number] Medical Decision Making Differential Diagnosis Differential diagnosis includes: OR, angina, aortic dissection, PE, musculoskeletal pain, anemia, CHF, pneumonia. Medical Records Attestation: I reviewed the patient's medical records. Home Medications Current Medication List: was personally reviewed by me Laboratory Data Attestation: I reviewed the patient's lab results. Result diagrams: 05/16/19 15:56 05/16/19 15:56 Lab Results 05/16/19 05/16/19 05/16/19 Range/Units 15:56 15:56 15:56 WBC 11.50 H (4.8-10.8) K/uL RBC 4.93 (4.7-6.1) M/uL Hgb 15.3 (14.0-18.0) g/dL Hct 44.0 (42-52) % MCV 89.2 (80-100) fL MCH 31.0 (25-34) pg MCHC 34.8 (32-36) g/dL RDW Std Deviation 42.6 (36.4-46.3) fL RDW Coeff of Vonda 13.0 (11.5-14.5) % Plt Count 125 L (130-400) K/uL MPV 11.9 H (7.4-10.4) fL Immature Gran % (Auto) 0.2 % Neut % (Auto) 72.8 % Lymph % (Auto) 15.6 % [place] % (Auto) 9.4 % Eos % (Auto) 1.7 % Baso % (Auto) 0.3 % Immature Gran # (Auto) 0.02 (0.00-0.02) K/uL Neut # (Auto) 8.38 H (1.4-6.5) K/uL Lymph # (Auto) 1.79 (1.2-3.4) K/uL [place] # (Auto) 1.08 H (0.11-0.59) K/uL Eos # (Auto) 0.19 (0-0.5) K/uL Baso # (Auto) 0.04 (0-0.2) K/uL PT Cancelled INR Cancelled APTT Cancelled PTT Ratio Cancelled Sodium 139 (136-145) mmol/L Potassium 3.7 (3.5-5.1) mmol/L Chloride 107 (98-107) mmol/L Carbon Dioxide 22 (21-32) mmol/L Anion Gap 10.0 (3-11) BUN 20 H (7-18) mg/dl Creatinine 1.16 (0.6-1.4) mg/dl Est Cr Clr Drug Dosing 88.7 ml/min Est GFR ( Amer) 79.4 Est GFR (Non-Af Amer) 68.5 BUN/Creatinine Ratio 17.0 (10-20) Glucose 89 (70-99) mg/dl Calcium 9.2 (8.5-10.1) mg/dl Magnesium 1.9 (1.8-2.4) mg/dl Total Bilirubin 0.8 (0.2-1) mg/dl AST 18 (15-37) U/L ALT 19 (12-78) U/L Alkaline Phosphatase 79 (45-117) U/L Troponin I < 0.015 (0-0.045) ng/ml Total Protein 7.5 (6.4-8.2) gm/dl Albumin 4.0 (3.4-5.0) gm/dl Globulin 3.5 (2.5-4.0) gm/dl Albumin/Globulin Ratio 1.2 (0.9-2) Lipase 81 (73-393) U/L 05/16/19 Range/Units 17:00 WBC (4.8-10.8) K/uL RBC (4.7-6.1) M/uL Hgb (14.0-18.0) g/dL Hct (42-52) % MCV (80-100) fL MCH (25-34) pg MCHC (32-36) g/dL RDW Std Deviation (36.4-46.3) fL RDW Coeff of Vonda (11.5-14.5) % Plt Count (130-400) K/uL MPV (7.4-10.4) fL Immature Gran % (Auto) % Neut % (Auto) % Lymph % (Auto) % [place] % (Auto) % Eos % (Auto) % Baso % (Auto) % Immature Gran # (Auto) (0.00-0.02) K/uL Neut # (Auto) (1.4-6.5) K/uL Lymph # (Auto) (1.2-3.4) K/uL [place] # (Auto) (0.11-0.59) K/uL Eos # (Auto) (0-0.5) K/uL Baso # (Auto) (0-0.2) K/uL PT 11.8 INR 1.2 H APTT 27.6 PTT Ratio 1.0 Sodium (136-145) mmol/L Potassium (3.5-5.1) mmol/L Chloride (98-107) mmol/L Carbon Dioxide (21-32) mmol/L Anion Gap (3-11) BUN (7-18) mg/dl Creatinine (0.6-1.4) mg/dl Est Cr Clr Drug Dosing ml/min Est GFR ( Amer) Est GFR (Non-Af Amer) BUN/Creatinine Ratio (10-20) Glucose (70-99) mg/dl Calcium (8.5-10.1) mg/dl Magnesium (1.8-2.4) mg/dl Total Bilirubin (0.2-1) mg/dl AST (15-37) U/L ALT (12-78) U/L Alkaline Phosphatase (45-117) U/L Troponin I (0-0.045) ng/ml Total Protein (6.4-8.2) gm/dl Albumin (3.4-5.0) gm/dl Globulin (2.5-4.0) gm/dl Albumin/Globulin Ratio (0.9-2) Lipase (73-393) U/L Imaging Data Radiologist's Impression: Radiology results as stated below per my review and the radiologist's interpretation: XR chest 1V portable CLINICAL HISTORY: 58 years-old Male presenting with Chest Pain, nausea. TECHNIQUE: Portable upright AP view of the chest was obtained. COMPARISON: 10/09/2017. FINDINGS: Atherosclerosis of the aortic arch. Cardiac silhouette borderline enlarged. No focal opacity. No large effusion or pneumothorax. Degenerative changes of the thoracic spine. Upper abdomen normal. IMPRESSION: 1. Borderline cardiomegaly. No other convincing evidence of acute cardiopulmonary disease. Electronically signed by: Ciro Hodges M.D. 05/16/2019 4:53 PM ECG Data Attestation: I personally reviewed and interpreted this ECG as follows: Indication: + chest pain Rate (beats per minute): 50 Rhythm: + sinus bradycardia ECG ST segments: + T-wave inversions (lateral); no ST elevation ECG Findings: + Other (QTC is 408); no PACs and no PVCs Comparison ECG Date: from (10/10/17, 10/09/17) Change: the following changes noted (Compared to 10/10/17, the T waves changes of the current EKG are more pronounced. Compared to 10/09/17, the current EKG looks similar) Blood Pressure Blood Pressure Findings: Elevated blood pressure Blood Pressure Disposition: further management by hospitalist MDM Narrative There is a mild leukocytosis, this could be consistent with infection or the pain from earlier today. Platelet count slightly low at 125. No worrisome coagulopathy. No significant electrolyte abnormality or kidney failure. No liver enzyme elevation. No evidence for pancreatitis. EKG shows a sinus rhythm with some inverted T waves laterally. This was a change compared to the most recent EKG. Cardiac enzyme testing x1 does not show any evidence for acute cardiac injury. Chest film does not show pneumonia or CHF. The patient presents with chest pain, lightheadedness, diaphoresis and nausea. He had some left arm discomfort. His symptoms nearly completely resolved with 3 nitroglycerin and oral aspirin. He has known coronary artery disease. Given his EKG findings, given his history, given his known coronary artery disease, I do think a hospital stay is warranted. Further cardiac testing is indicated. The patient was given IV saline. He received oral Tylenol, he was given Nit ropaste. He did receive a dose of IV hydralazine for a higher blood pressure. I spoke to the patient, I spoke with the custodial guards, I talked with case management. The on-call hospitalist has been consulted. The patient is currently resting comfortably. Impression & Plan Precordial chest pain, Diaphoresis, Abnormal EKG, History of coronary artery disease Discharge Plan Visit Data *Final* Discharge Date/Time: 05/16/19 18:35 Chief Complaint: Chest Pain Stated Complaint: CHEST PAIN ED Provider: Donald Lamar Discharge Problem: Precordial chest pain, Diaphoresis, Abnormal EKG, History of coronary artery disease Patient Disposition: Admitted As Inpatient Discharge Instructions Interventions: ED Discharge Assessment Last Done: 05/16/19 18:35 The scribe's documentation has been prepared under my direction and personally reviewed by me in its entirety. I confirm that the note above accurately reflects all work, treatment, procedures, and medical decision making performed by me.
[2019-05-16] MEDS ORDERED: ZOLPIDEM TARTRATE 5 MG TAB PO PRN (18:51)
[2019-05-16] MEDS ORDERED: IBUPROFEN 600 MG TAB PO PRN (18:51)
[2019-05-16] MEDS ORDERED: NITROGLYCERIN SL 0.4 MG/TAB TAB SL PRN (18:51)
[2019-05-16] MEDS ORDERED: POLYETHYLENE (MIRALAX) 17 GM PACK PO PRN (18:51)
[2019-05-16] MEDS ORDERED: GLUCOSE 40% GEL 15 GM TUBE PO PRN (18:51)
[2019-05-16] MEDS ORDERED: ALUMINUM/MAGNESIUM SUSP 30 ML UDC PO PRN (18:51)
[2019-05-16] MEDS ORDERED: ONDANSETRON INJ 2 MG/ML 2 ML VIAL IV PRN (18:51)
[2019-05-16] MEDS ORDERED: CARBOHYDRATES FOR HYPOGLYCEMIA PO PRN (18:51)
[2019-05-16] MEDS ORDERED: GLUCOSE 10 TABS/TUBE PO PRN (18:51)
[2019-05-16] MEDS ORDERED: ACETAMINOPHEN 325 MG TAB PO PRN (18:51)
[2019-05-16] MEDS ORDERED: GLUCAGON FOR INJ 1 MG VIAL SQ PRN (18:51)
[2019-05-16] MEDS ORDERED: MAGNESIUM HYDROXIDE SUSP 30 ML UDC PO PRN (18:51)
[2019-05-16] MEDS ORDERED: DEXTROSE 50% 50 ML SYRINGE IV PRN (18:51)
[2019-05-16] MEDS ORDERED: HydrALAZINE HCL 20 MG/ML VIAL IV PRN (18:56)
--- NOTE | 2019-05-16 20:41 | Billing Data ---
Coding Level of Care Code 51151 OBS Care - Level 3
[2019-05-16] MEDS ORDERED: FLUOXETINE HCL 20 MG CAP PO SCH (21:00)
[2019-05-16] MEDS ORDERED: INSULIN GLARGINE SOLOSTAR 100 UNITS/ML 3 ML PEN SQ SCH (21:00)
[2019-05-16] MEDS ORDERED: ATORVASTATIN 40 MG TAB PO SCH (21:00)
[2019-05-16] MEDS: INSULIN ASPART 100 UNITS/ML 3 ML PEN SC SCH (21:04)
[2019-05-16] MEDS: METOPROLOL TARTRATE 100 MG TAB PO SCH (21:06)
[2019-05-16] MEDS: LISINOPRIL 20 MG TAB PO SCH (21:07)
[2019-05-16] MEDS: METFORMIN HCL 850 MG TAB PO SCH (21:08)
[2019-05-16 22:23] LABS: Troponin I 0.019 ng/ml (0-0.045)
[2019-05-17] MEDS ORDERED: LEVOTHYROXINE SODIUM 25 MCG TABLET PO SCH (06:30)
[2019-05-17] MEDS ORDERED: PNEUMOCOCCAL POLYSACCHARIDES 25 MCG/0.5 ML VIAL/SYR IM ONE (06:45)
[2019-05-17] MEDS ORDERED: PNEUMOCOCCAL ADMINISTRATION CHARGE ONE (06:45)
[2019-05-17] MEDS: INSULIN ASPART 100 UNITS/ML 3 ML PEN SC SCH ×2 (08:21→12:03)
[2019-05-17] MEDS: METOPROLOL TARTRATE 100 MG TAB PO SCH (08:28)
[2019-05-17] MEDS: METFORMIN HCL 850 MG TAB PO SCH (08:40)
[2019-05-17] MEDS ORDERED: ASPIRIN 81 MG ECTAB PO SCH (09:00)
[2019-05-17] MEDS ORDERED: POTASSIUM CHLORIDE 20 MEQ TABCR PO SCH (09:00)
[2019-05-17] MEDS ORDERED: AMLODIPINE BESYLATE 5 MG TAB PO SCH (09:00)
[2019-05-17] MEDS: LISINOPRIL 20 MG TAB PO SCH (09:21)
--- NOTE | 2019-05-17 13:22 | Consultation Report ---
DATE OF CONSULTATION: 05/17/2019 REQUESTING: Priscilla Sky MD. WELT BEATER: Monster Hernandez DO, [facility]. REASON FOR CONSULTATION: Chest discomfort, known coronary artery disease. Mr. Ferrera was awoken from sleep at about 7:00 in the morning, he had left-sided chest discomfort. It lasted about 10 hours. He went to the Emergency Room, which gave him a headache and only minimally relieved his chest discomfort. He was brought to the Emergency Room. His troponins are negative. He notes his chest discomfort at rest is gone. In discussing with him, he denies any chest pain or chest pressure over the last week or so with activity. He has to climb a flight of stairs in the senior living and that does not cause any discomfort. He walks on the flat, he does not have any discomfort. His discomfort is reproducible. It is over the left side of his chest radiating down to his lower chest wall. He also has left upper quadrant discomfort. He notes outside of the headache, he is feeling better. Denies any palpitations or fluttering or feeling his heart racing. He denies any lower extremity edema or symptoms of claudication. He notes he stopped smoking given the fact that the senior living went tobacco-free. The rest of complete review of systems is negative. PAST MEDICAL HISTORY: 1. Coronary artery disease, status post stenting x3 in 2017 to unknown vessels. 2. EKG consistent with an inferior posterior TN, age indeterminate. 3. Hypertension. 4. Hyperlipidemia. 5. Diabetes mellitus type 2. 6. Hypothyroidism. 7. Abnormal EKG. SOCIAL HISTORY: He is a prisoner. He stopped smoking recently, but had smoked since the age of 13 of 1-1/2 packs per year. He denies any alcohol. ALLERGIES: No known drug allergies. MEDICATIONS: Reviewed in the electronic medical record. FAMILY HISTORY: Noncontributory. PHYSICAL EXAMINATION: GENERAL: He is awake, alert, oriented x3. He is in no acute distress. VITAL SIGNS: Pulse of 56, blood pressure 171/95, O2 sat is 96%. HEENT: 2+ carotid upstrokes, no evidence of carotid bruits. Jugular venous pressure appeared normal. His sclerae are anicteric. His hearing is normal. LUNGS: Clear to auscultation bilaterally. No rales, rhonchi or wheezing. HEART: Regular rate and rhythm. No appreciable murmurs, rubs or gallops. ABDOMEN: Soft, nontender, nondistended. Positive bowel sounds. EXTREMITIES: No clubbing, cyanosis or edema. PSYCHIATRIC: His affect appeared appropriate. MUSCULOSKELETAL: He has reproducible chest discomfort over the left side of his chest to the lower portion of his left chest, left rib margin. DIAGNOSTIC STUDIES: EKG on admission: Sinus rhythm, inferior TN - age indeterminate. ST-T changes, consider anterolateral ischemia. When compared to his prior, T-wave inversions have replaced nonspecific T-wave changes. Stress echo on 10/11/2017: No evidence of ischemia, normal LV function. Of note, his baseline EKG was reviewed. On that EKG, he had no lateral T-wave changes. His troponins are negative x3. His blood pressure remains very elevated. Chest x-ray: Cardiomegaly, no evidence of heart failure. IMPRESSION: 1. Chest discomfort, which is reproducible and is most consistent with costochondritis. 2. Accelerated hypertension, on maxed dose lisinopril, amlodipine and high-dose beta blockers. 3. History of coronary artery disease with what appeared to be inferior Q waves. 4. New worsening anterolateral EKG changes with negative troponins. He has not had any progressive anginal symptoms. He had a stress echo in 10/2017, which was negative for ischemia. The T-wave inversions look worse, but his symptoms today are clearly costochondritis and at least at his current functional capacity in the intermediate, he is not having any cardiac complaints. I would recommend an echocardiogram. If there are no new wall motion abnormalities, he could be discharged back to the senior living. He does need better blood pressure control. I would consider adding hydrochlorothiazide to his regimen and he may need hydralazine 25 mg t.i.d. given the elevation in his blood pressures. Additionally, he should be on high intensity statin therapy. He was previously on 40 mg when he was admitted. Thank you for allowing me to participate in his care.
[2019-05-17] MEDS ORDERED: Nursing to Pharmacy Communication ONE (15:17)
[2019-05-17 15:44] VITALS: TEMP 98.5; O2SAT 95
--- NOTE | 2019-05-17 16:05 | Discharge Summary ---
Date of Service May 17, 2019 Admission HPI Per Admitting Provider Mr. Ferrera is a 58 yo male prisoner with a PMHx of CAD s/p stent placement x3 in 2017 who was sent to [facility] for further evaluation of chest pain he first noticed upon wakening this morning at 7:00am. The chest pain was L sided with radiation down the left arm. It was stabbing in quality; not positional or worse with inspiration. Associated symptoms include diaphoresis, nausea but no vomiting, lightheadedness and SOB. Mr. Ferrera was evaluated by the [facility] physician at 2:00pm today at which time an EKG was reportedly unremarkable. He was given ASA 324mg and sublingual nitroglycerin x3, which reduced his chest discomfort before being sent to the ED. Mr. Ferrera reports chest pain to be 2/10 in severity at present and endorses a new headache that started after taking the nitroglycerin. He has many cardiovascular risk factors including hypertension, hyperlipidemia, diabetes mellitus, and >60 pack year history of tobacco use (quit one year ago). ED course: On arrival troponin was undetectable. EKG with sinus bradycardia, 1st degree AV diane block, RBBB, pathological Q waves in the inferior leads, T wave inversion, but not acute ST segment changes. He was given tylenol 1,000mg, a nitroglycerin patch, and a 500ml bolus of normal saline. Admission Exam Per Admitting Provider Constitutional: WD/WN, vitals as above no acute distress Handcuffed to bed Eyes: + anicteric sclerae Wearing glasses ENMT: external ear and nose normal, oropharynx normal Neck: trachea midline Respiratory: normal respiratory effort, lungs clear to auscultation Auscultation: no crackles, no rales, no rhonchi, no wheezes and no pleural rub Cardiovascular: Rate/Rhythm: regular rhythm and + bradycardic Heart Sounds: normal S1 and normal S2; no click, no gallop, no murmur and no cardiac rub Palpation: no thrill Vessels: no carotid bruit Extremities: no pedal edema Chest pain reproducible on exam Gastrointestinal (Abdomen): normal bowel sounds, soft, nontender, no hepatosplenomegaly Inspection/Auscultation: abdomen not distended Percussion/Palpation: abdomen soft; abdomen nontender Musculoskeletal: Head/Neck/Chest: normocephalic and head atraumatic Neg for peripheral LE edema, + pedal pulses Skin: no rashes, warm and dry Neurologic: awake; not confused Speech / Cognition: normal speech Psychiatric: A+Ox3, euthymic affect Principal Diagnosis Chest pain Discharge Exam General Appearance: Awake, alert & oriented, comfortable in general, NAD. CV: +S1S2 RRR, no murmur. Reproducible chest discomfort over the left chest wall. Pulm: Clear to auscultation throughout. Abdomen: +BS, soft, non-tender, non-distended. Extremities: No pedal edema or calf tenderness. Moving all extremities naturally and easily with exception of left wrist in a Velcro splint. Neuro: No gross neuro deficits. Discharge Data Allergies Allergy/AdvReac Type Severity Reaction Status Date / Time No Known Allergies Allergy Unverified 05/16/19 17:22 Consultations Cardiology consultation assessment and plan on May 17, 2019 IMPRESSION: 1. Chest discomfort, which is reproducible and is most consistent with costochondritis. 2. Accelerated hypertension, on maxed dose lisinopril, amlodipine and high-dose beta blockers. 3. History of coronary artery disease with what appeared to be inferior Q waves. 4. New worsening anterolateral EKG changes with negative troponins. He has not had any progressive anginal symptoms. He had a stress echo in 10/2017, which was negative for ischemia. The T-wave inversions look worse, but his symptoms today are clearly costochondritis and at least at his current functional capacity in the [facility], he is not having any cardiac complaints. I would recommend an echocardiogram. If there are no new wall motion abnormalities, he could be [facility]. He does need better blood pressure control. I would consider adding hydrochlorothiazide to his regimen and he may need hydralazine 25 mg t.i.d. given the elevation in his blood pressures. Additionally, he should be on high intensity statin therapy. He was previously on 40 mg when he was admitted. Procedures Performed Transthoracic echocardiogram performed on May 17, 2019 Interpretation summary This is a limited echo done for LV function and wall motion. Left ventricle is normal in size. There is moderate concentric LVH. Left ventricular systolic function is normal. Estimated EF is 60-65%. There are no regional wall motion abnormalities. There is type I diastolic dysfunction. The aortic root and proximal ascending aorta are dilated at 4.8 cm. Hospital Course (1) Precordial chest pain: (2) Shortness of breath: 58-year-old male was admitted on May 16, 2019 for chest pain or shortness of breath. Chest pain, shortness of breath, likely costochondritis: Upon awakening around 7 AM on the day of admission. pCXR with borderline cardiomegaly, aortic arch atherosclerosis, but no evidence of acute disease. Has known underlying CAD. Treated and improved with aspirin, nitroglycerin, and Tylenol. Trending TnI noted negative x 3. Admit and repeat EKGs notable for sinus javy with T wave inversions laterally. - Seen by cardiology (see related note). They also noted new/worsening T wave inversions compared to previous. However, they are rather convinced this is costochondritis. They recommended an echocardiogram which overall noted no regional wall abnormalities (see full report) and continuation of his atorvastatin 40 mg. Hypertension: As high as 197/95. Given hydralazine. Continue prior amlodipine, metoprolol, and lisinopril. - Radiology recommended addition of hydrochlorothiazide as well as potentially hydralazine. Started Aortic root and proximal ascending aortic dilatation at 4.8 cm: As seen on TTE. Ongoing medical issues: - Hyperlipidemia: Continue prior atorvastatin 40 mg. - CAD: S/p three stents in May 2017. Normal stress echo in October 2017. - DM2: On admission, kept on his prior Lantus and metformin regimen. Sliding scale insulin as needed. - Hypothyroidism: Continue prior levothyroxine. - Mood disorder: Continue prior Prozac. - ? Prior hypokalemia: Continue prior KCl supplement. Code status: Full code. (3) HTN (hypertension): (4) Aortic dilatation: (5) HLD (hyperlipidemia): (6) History of coronary artery disease: (7) DM2 (diabetes mellitus, type 2): (8) Hypothyroid: (9) Mood disorder: Total Time Total Time Spent Total Time Spent (In Minutes): > 30 min Discharge Plan Discharge Items [facility] Reason For Visit: CHEST PAIN Discharge Diagnosis: Chest pain Activity: Resume your previous activity Non-emergency contact: Primary Care Provider Call non-emergency contact if: you have any medication questions Follow-up/Referrals: Leia MELGAR [Primary Care Provider] - Diet: Heart Healthy Addtl Attending Provider Instructions: You were admitted to the hospital on May 16, 2019 for evaluation of your chest pain. While in the hospital, we addressed the following issues: Chest pain: As you know, this pain resolved with the use of nitroglycerin. Here, multiple serial blood tests and EKGs noted no evidence of acute heart attack. Cardiology was consulted and they recommended an echocardiogram which was overall reassuring. Incidentally there was some enlargement of your aorta (the largest blood vessel from your heart) seen on the heart ultrasound. - Recommended continuing monitoring with your medical facility, including review of your echocardiogram results. Blood pressure: As you know, you have a history of high blood pressure for which you are already on multiple blood pressure lowering medications. Here, your blood pressure remains quite elevated. It was recommended that you start on an additional medicine called hydrochlorothiazide. - This needs continued monitoring to get it under the best control possible. Otherwise, you should remain on the same medications that you were on prior to this hospital admission. Please re-contact your medical team if you have any return of any chest pain, difficulty breathing, abnormal swelling, or any other emergent medical concerns. Pending Studies at Discharge: No Stand-Alone Forms: Call Back Authorization, [facility] Skilled Items Patient informed of condition?: Yes DNR: No Discharge Level of Care: Other Communicable Disease: No Discharge Prognosis: Stable Lines: None Urinary Catheter: No Medications and DC Order Prescriptions: New hydrochlorothiazide 12.5 mg tablet 12.5 mg PO DAILY Qty: 30 RF: 0 Continued atorvastatin 40 mg Tablet 40 mg PO HS RF: 0 Lantus U-100 Insulin 100 unit/mL Solution 8 unit SUBCUT HS RF: 0 metoprolol tartrate 100 mg Tablet 100 mg PO BID RF: 0 lisinopril 20 mg Tablet 20 mg PO BID RF: 0 metformin 850 mg Tablet 850 mg PO BID RF: 0 levothyroxine 25 mcg Tablet 25 mcg PO DAILY RF: 0 amlodipine 10 mg Tablet 10 mg PO DAILY RF: 0 diphenhydramine HCl [Benadryl] 25 mg Capsule 50 mg PO HS RF: 0 aspirin [Aspirin Childrens] 81 mg Tablet,Chewable 81 mg PO DAILY RF: 0 ibuprofen 600 mg Tablet 600 mg PO TID PRN (Reason: Pain) RF: 0 fluoxetine 20 mg Capsule 60 mg PO HS RF: 0 potassium chloride 20 mEq Tablet Extended Release 20 meq PO DAILY RF: 0 Admission Data Admit Date/Time: 05/16/19 18:07 Attending Provider: Chayo Gilliam Admit Provider: Danita Archibald Primary Care Provider: Leia MELGAR Other Providers: Monster Hernandez Supervising Physician Co-Signing Physician Notes Mr. Ferrera is a 58 year old male with hx of HTN, DM, CAD s/p 3 drug eluting stents admitted with concerns of ongoing chest pain. In the ED, EKG with first degree AV block RBBB, new lateral t wave inversions as well as path Q waves, neg trop. Given nitro with improvement in some of his chest pain. His chest pain is reproducible with palpation over the left sternal border/costochondral junctions. Troponins during his stay were flat. Repeat Echo given his new EKG changes without new wall motion abnormalities. Blood pressure was elevated here. Added HCTZ to his home blood pressure regimen. Discharge back to facility today. 35 minutes spent discharge planning. Resident Activity Tracking Resident Involvement: Resident Care Provided Care Provided: Adult Hospital Medicine
[2019-05-17 16:16] VITALS: BP 171/95; PULSE 60
[2019-05-17] MEDS ORDERED: INSULIN ASPART 100 UNITS/ML 3 ML PEN SC SCH (16:30)
== END 2019-05-17 18:37 ==
LOC: ED 15:36 → 2E 15:36 → SUATTDRO 18:07 → 2E 18:35

== ENCOUNTER 2019-08-05 16:29 | Observation (INO) ==
[2019-08-05] MEDS ORDERED: NITROGLYCERIN SL 0.4 MG/TAB TAB SL PRN ×2 (17:07→21:44)
[2019-08-05] MEDS ORDERED: SODIUM CHLORIDE 0.9% 1000ML 1,000 ML IV SCH (17:15)
--- NOTE | 2019-08-05 17:18 | XRay Report ---
XR chest 1V portable CLINICAL HISTORY: Atypical chest pain COMPARISON STUDY: 05/16/2019 FINDINGS: The heart is borderline enlarged. There is aortic tortuosity/ectasia. There is no overt ashley lure. There is slight prominence of basilar markings, statistically atelectatic. There are no signifi cant pleural effusions. There is no pneumothorax. IMPRESSION: Slight prominence of basilar markings, statistically atelectatic. No evidence of lobar co nsolidation. ACT 112: Negative or not required by law. Electronically signed by: Rodrigo Garay M.D. 08/05/2019 5:17 PM
[2019-08-05 17:23] LABS: Basophils # (auto) 0.04 K/uL (0-0.2); Basophils % (auto) 0.4 %; Eosinophils % (auto) 3.3 %; Hematocrit (blood only) 40.6 % (42-52); Hemoglobin 13.6 g/dL (14.0-18.0); Immature Granulocytes # (auto) 0.03 K/uL (0.00-0.02); Immature Granulocytes % (auto) 0.3 %; Lymphocytes # (auto) 2.15 K/uL (1.2-3.4); Lymphocytes % (auto) 23.7 %; Mean Corpuscular Hemoglobin 29.9 pg (25-34); Mean Corpuscular Hgb Conc 33.5 g/dL (32-36); Mean Corpuscular Volume 89.2 fL (80-100); Mean Platelet Volume 11.6 fL (7.4-10.4); Monocytes # (auto) 0.81 K/uL (0.11-0.59); Monocytes % (auto) 8.9 %; Neutrophils # (auto) 5.75 K/uL (1.4-6.5); Neutrophils % (auto) 63.4 %; Platelet Count 155 K/uL (130-400); RDW Coefficient of Variation 13.5 % (11.5-14.5); RDW Standard Deviation 44.2 fL (36.4-46.3); Red Blood Count 4.55 M/uL (4.7-6.1); White Blood Count 9.08 K/uL (4.8-10.8)
[2019-08-05 17:30] LABS: Alanine Aminotransferase 22 U/L (12-78); Albumin Level 3.5 gm/dl (3.4-5.0); Aspartate Aminotransferase 16 U/L (15-37); BUN Creatinine Ratio 15.7 (10-20); Blood Urea Nitrogen 16 mg/dl (7-18); Calcium 8.8 mg/dl (8.5-10.1); Carbon Dioxide 29 mmol/L (21-32); Chloride 108 mmol/L (98-107); Creatinine Clr Calc Pharmacy 107.8 ml/min; Est GFR (African American) 95.1; Glucose 110 mg/dl (70-99); Lipase 103 U/L (73-393); Potassium 3.5 mmol/L (3.5-5.1); Sodium 140 mmol/L (136-145)
[2019-08-05 17:35] LABS: Albumin Globulin Ratio 1.1 (0.9-2); Alkaline Phosphatase 72 U/L (45-117); Bilirubin,Total 0.5 mg/dl (0.2-1); Globulin 3.3 gm/dl (2.5-4.0); Total Protein 6.8 gm/dl (6.4-8.2); Troponin I < 0.015 ng/ml (0-0.045)
[2019-08-05] MEDS ORDERED: OPTIRAY 320 125ml IV PRN (19:09)
--- NOTE | 2019-08-05 19:24 | History & Physical Report ---
Date of Service August 05, 2019 Assessment & Plan (1) Chest pain: 58yo C male with history of CAD s/p stent x 3 in 2017, HTN/HLP/DM and aortic root and proximal ascending aorta dilation presenting with acute onset left sided chest pain which started at 15:00 today. Pain relieved with Nitro. EKG with new RBBB, troponin x 1 negative. Patient with slight chest discomfort at present. Patient denies exertional chest discomfort. Echocardiogram in May 2019 with EF of 60-65%, Type I diastolilc dysfunction and aortic dilation of 4.8cm. -Admit to medical floor with telemetry monitoring -Trend troponin q 8 hours x 3 sets -Continue ASA, Atorvastatin, Metoprolol, Lisinopril -Nitro as needed Present on Admission?: Yes (2) Abnormal EKG: Patient with new RBBB -Workup as above Present on Admission?: Yes (3) HTN (hypertension): Patient with hypertension on multiple antihypertensives with poor control. BP = 214/104 in LUE and 207/118 in RUE. He is currently on maximum doses of multiple agents -Continue HCTZ 50mg po daily -Continue Amlodipine 10mg po daily -Continue Lisinopril 40mg po BID -Continue metoprolol 50mg po BID -Continue Hydralazine 10mg po BID - this can be increased for additional blood pressure control. Maximum of 300mg/day -Continue to monitor Present on Admission?: Yes (4) History of coronary artery disease: As above, patient with CAD s/p stent x 3 in 2017. -Plan as above -Continue ASA, Atorvastatin, Metoprolol, Lisinopril Present on Admission?: Yes (5) Mood disorder: Stable. -Continue Ariprazole 2mg po qHS -Continue Fluoxetine Present on Admission?: Yes (6) Aortic dilatation: Patient with 4.8cm dilation of ascending aorta noted on echocardiogram from 05/17/19. Imaged today with CTA, size unchanged, no dissection -Continue blood pressure control, treatment of CAD Present on Admission?: Yes (7) HLD (hyperlipidemia): Chronic. -Continue Atorvastatin Present on Admission?: Yes (8) DM2 (diabetes mellitus, type 2): Blood sugar presently well controlled -Hold Metformin while inpatient -Lantus 8u qHS -ISS Present on Admission?: Yes (9) Hypothyroid: Chronic -Check TSH with AM labs -Continue Synthroid F/E/N- Heplock. Monitor electrolytes. CC/AHA diet Ppx - Low risk for DVT Code - Full Dispo - Observation to medical floor with telemetry History of Present Illness Chief Complaint: chest pain Primary Care Provider: TALIA Dupree Romeo Ferrera is a 58yo C male with history of HTN/HLP/DM/CAD s/p stent x 3 in 2017 presenting with chest pain. Pain began at 15:00 when patient was sitting in his cell. Left sided, sharp in nature, 5/10. Non-exertional/non-pleuritic/non-radiating. No associated SOB/n ausea/diaphoresis. He has received SL Nitro x 4 doses with incremental decrease in CP. Now CP is a "0.5/10", he does, however, have a headache after receiving Nitro. ER Course: Nitro 0.4mg SL x 1, NSS x 1 liter Allergies Allergy/AdvReac Type Severity Reaction Status Date / Time No Known Allergies Allergy Verified 08/05/19 18:03 Home Medications Home Medications Medication Instructions Recorded Confirmed Type amlodipine 10 mg PO QAM 05/16/19 08/05/19 History aspirin [Aspirin Childrens] 81 mg PO QAM 05/16/19 08/05/19 History atorvastatin 40 mg PO HS 05/16/19 08/05/19 History diphenhydramine HCl [Benadryl] 50 mg PO HS 05/16/19 08/05/19 History fluoxetine 60 mg PO HS 05/16/19 08/05/19 History ibuprofen 600 mg PO TID PRN 05/16/19 08/05/19 History levothyroxine 25 mcg PO QAM 05/16/19 08/05/19 History metformin 850 mg PO BID 05/16/19 08/05/19 History potassium chloride 40 meq PO QAM 05/16/19 08/05/19 History aripiprazole 2 mg PO HS 08/05/19 08/05/19 History calcium carbonate-vitamin D3 2 tab PO QAM 08/05/19 08/05/19 History [Calcium 600 + D(3)] hydralazine 10 mg PO BID 08/05/19 08/05/19 History hydrochlorothiazide 50 mg PO QAM 08/05/19 08/05/19 History insulin glargine [Lantus U-100 8 unit SUBCUT HS 08/05/19 08/05/19 History Insulin] lisinopril 40 mg PO BID 08/05/19 08/05/19 History metoprolol tartrate 50 mg PO BID 08/05/19 08/05/19 History nitroglycerin [Nitrostat] 0.4 mg SUBLINGUAL DIRECTED PRN 08/05/19 08/05/19 History Past Med/Surg History Medical History (Updated 08/05/19 @ 19:59 by Cecilia Shah DO) DM2 (diabetes mellitus, type 2) (Chronic) HLD (hyperlipidemia) (Chronic) HTN (hypertension) (Chronic) Hypothyroid (Chronic) Surgical History S/P coronary artery stent placement (Resolved) Family History Other Family history non-contributory Social History Preferred Language: Polish Communication Ability: Effective Trace Clerk Required: No Beliefs That Will Affect Care: None marital status: single Current Living Situation: Other Current Living Situation Comment: [facility] Feels Safe at Home: Yes Smoking Status: Former smoker Tobacco Type: cigarettes ; Age Started Using Tobacco: 13 ; Age Quit Using Tobacco: 57 ; packs per day: 1.5 ; Number of Years Since Quit: 1 ; Second Hand Exposure: No ; Hx Alcohol Use: No Hx Substance Use: No Review of Systems Review of Systems: All systems reviewed & are unremarkable except as noted in HPI & below Physical Exam Physical Exam: General: patient resting comfortably, NAD, non-toxic in appearance, AA&O x 4, BP 207/118 in RUE and 214/104 in LUE Skin: warm, dry, intact, no rashes or lesions, multiple tattoos HEENT: NC/AT, PERRL, EOMI, anicteric sclera, conjunctiva without injection, external ear normal to inspection and nontender, nares patent, moist mucus membranes, missing front tooth, no oropharyngeal lesions, neck supple, trachea midline, no LAD, no thyromegaly, no JVD Heart: +S1/S2, regular, bradycardic, no m/r/g Lungs: equal air entry bilaterally, no rales/rhonchi/wheezes Abd: +BS, soft, NT/ND, no masses/organomegaly/ascites Ext: warm, 2+ pulses in UE/LE bilaterally, no clubbing/cyanosis or edema Neuro: nonfocal, patient AA&O, speech intact, no facial droop, moving all extremities on command with equal strength 5/5 Results & Data Vital Signs (Past 12 Hours) Vital Signs Temp Pulse Resp BP Pulse Ox 08/05/19 18:45 49 L 14 207/110 H 08/05/19 18:30 49 L 17 192/88 H 08/05/19 18:15 46 L 18 178/103 H 99 08/05/19 17:45 52 L 23 166/92 H 08/05/19 17:30 50 L 14 152/87 H 96 08/05/19 17:29 51 L 22 158/90 H 96 08/05/19 17:24 51 L 13 170/90 H 96 08/05/19 17:23 48 L 18 156/90 H 97 08/05/19 17:19 58 L 26 H 168/99 H 96 08/05/19 17:13 97 08/05/19 17:00 46 L 19 157/103 H 97 08/05/19 16:47 96 08/05/19 16:30 36.4 C L 57 L 15 169/94 H 96 Laboratory Results Lab Results 08/05/19 08/05/19 Range/Units 16:45 16:45 WBC 9.08 (4.8-10.8) K/uL RBC 4.55 L (4.7-6.1) M/uL Hgb 13.6 L (14.0-18.0) g/dL Hct 40.6 L (42-52) % MCV 89.2 (80-100) fL MCH 29.9 (25-34) pg MCHC 33.5 (32-36) g/dL RDW Std Deviation 44.2 (36.4-46.3) fL RDW Coeff of Vonda 13.5 (11.5-14.5) % Plt Count 155 (130-400) K/uL MPV 11.6 H (7.4-10.4) fL Immature Gran % (Auto) 0.3 % Neut % (Auto) 63.4 % Lymph % (Auto) 23.7 % [place] % (Auto) 8.9 % Eos % (Auto) 3.3 % Baso % (Auto) 0.4 % Immature Gran # (Auto) 0.03 H (0.00-0.02) K/uL Neut # (Auto) 5.75 (1.4-6.5) K/uL Lymph # (Auto) 2.15 (1.2-3.4) K/uL [place] # (Auto) 0.81 H (0.11-0.59) K/uL Eos # (Auto) 0.30 (0-0.5) K/uL Baso # (Auto) 0.04 (0-0.2) K/uL Sodium 140 (136-145) mmol/L Potassium 3.5 (3.5-5.1) mmol/L Chloride 108 H (98-107) mmol/L Carbon Dioxide 29 (21-32) mmol/L Anion Gap 4.0 (3-11) BUN 16 (7-18) mg/dl Creatinine 1.00 (0.6-1.4) mg/dl Est Cr Clr Drug Dosing 107.8 ml/min Est GFR ( Amer) 95.1 Est GFR (Non-Af Amer) 82.0 BUN/Creatinine Ratio 15.7 (10-20) Glucose 110 H (70-99) mg/dl Calcium 8.8 (8.5-10.1) mg/dl Total Bilirubin 0.5 (0.2-1) mg/dl AST 16 (15-37) U/L ALT 22 (12-78) U/L Alkaline Phosphatase 72 (45-117) U/L Troponin I < 0.015 (0-0.045) ng/ml Total Protein 6.8 (6.4-8.2) gm/dl Albumin 3.5 (3.4-5.0) gm/dl Globulin 3.3 (2.5-4.0) gm/dl Albumin/Globulin Ratio 1.1 (0.9-2) Lipase 103 (73-393) U/L Diagnostic Findings XR chest 1V portable CLINICAL HISTORY: Atypical chest pain COMPARISON STUDY: 05/16/2019 FINDINGS: The heart is borderline enlarged. There is aortic tortuosity/ectasia. There is no overt failure. There is slight prominence of basilar markings, statistically atelectatic. There are no significant pleural effusions. There is no pneumothorax. IMPRESSION: Slight prominence of basilar markings, statistically atelectatic. No evidence of lobar consolidation. ACT 112: Negative or not required by law. Electronically signed by: Rodrigo Garay M.D. 08/05/2019 5:17 PM Dictated: 08/05/191714 Transcribed: 08/05/191714 ECG Additional Comments: The study shows sinus bradycardia at 50bpm, normal axis, 1st degree AV block with MP=865, FKB=684, UOg=329, RBBB present which is new from prior study from [address] depressions present in I, aVL Code Status & VTE Plan Code Status FULL VTE Prophylaxis Plan VTE Prophylaxis will be ordered: Yes PG Care Time/CCT Total # of Minutes Spent Total Time Spent with Patient: Total time spent is greater than 50% in coordination of care (as documented) at patient's floor/unit and/or counseling patient: Coding Level of Care Code 94730 OBS Care - Level 3 Diagnoses Chest pain R07.9 Chest pain type: unspecified Abnormal EKG R94.31 HTN (hypertension) I10 Hypertension type: essential hypertension History of coronary artery disease Z86.79 Mood disorder F39 Aortic dilatation I77.819 HLD (hyperlipidemia) E78.5 Hyperlipidemia type: unspecified DM2 (diabetes mellitus, type 2) E11.9; Z79.4 Diabetes mellitus oysterman insulin use: with skilled nursing use Diabetes mellitus complication status: without complication Hypothyroid E03.9 Hypothyroidism type: unspecified (1) DM2 (diabetes mellitus, type 2) Diabetes mellitus skilled nursing insulin use: with skilled nursing use Diabetes mellitus complication status: without complication Qualified Code(s): E11.9 - Type 2 diabetes mellitus without complications; Z79.4 - ocean transportation intermediary (current) use of insulin (2) HLD (hyperlipidemia) Hyperlipidemia type: unspecified Qualified Code(s): E78.5 - Hyperlipidemia, unspecified (3) Hypothyroid Hypothyroidism type: unspecified Qualified Code(s): E03.9 - Hypothyroidism, unspecified (4) Chest pain Chest pain type: unspecified Qualified Code(s): R07.9 - Chest pain, unspecified (5) HTN (hypertension) Hypertension type: essential hypertension Qualified Code(s): I10 - Essential (primary) hypertension
--- NOTE | 2019-08-05 19:24 | CT Scan Report ---
Study: CT angiography of the chest. HISTORY: Chest pain. Dyspnea. COMPARISON: None. FINDINGS: The thoracic aorta shows minimal atherosclerotic change. Several small mediastinal nodes ar e present. No significant or bulky adenopathy is identified. The pulmonary vasculature enhances appropriately. There are no significant filling defects. The lungs are considered clear. No focal infiltrate. Minimal dependent basilar atelectasis. IMPRESSION: 1. Study is negative for pulmonary embolus. 2. Lungs are considered clear. 3. Minimal dependent basilar atelectasis. Electronically signed by: Ryan Tesfaye M.D. 08/05/2019 7:22 PM
[2019-08-05] MEDS ORDERED: HydrALAZINE HCL 20 MG/ML VIAL IV STA (19:39)
[2019-08-05] MEDS ORDERED: HydrALAZINE HCL 20 MG/ML VIAL ONE (19:49)
--- NOTE | 2019-08-05 21:42 | Emergency Department Note ---
Entered by Martita Hodges acting as a scribe for History of Present Illness General Chief complaint: Chest Pain Stated complaint: CHEST PAIN Source: patient and police (corrections officers) History of Present Illness Onset (ago): hour(s) (1500 today) Location: chest Severity: similar to prior episodes (prior [facility] in 2017) Pain Consistency: + constant Maximum Pain Intensity: 2 Quality: + sharp and + other (chest pain) Associated symptoms: + other (Negative sweating); no headaches and no nausea/vomiting Treatments prior to arrival: other (nitro) The patient is a 58 year old male who presents to the ED with complaints of chest pain beginning at 1500 today. He has a hx of HTN, CAD, DM2. He notes his pain began around the time his mail was delivered to him. He notes his pain is sharp and constant. He received nitro which alleviated his chest pain. As per corrections officers, the patient was at the ED similar symptoms 3 months ago and was discharged home. He denies any nausea, vomiting, sweating, headaches. He has a hx of an [facility] in 2017 and reports this feels similar to his current episode. He is a former smoker. Home Medications Home Medications Medication Instructions Recorded Confirmed Type amlodipine 10 mg PO QAM 05/16/19 08/05/19 History aspirin [Aspirin Childrens] 81 mg PO QAM 05/16/19 08/05/19 History atorvastatin 40 mg PO HS 05/16/19 08/05/19 History diphenhydramine HCl [Benadryl] 50 mg PO HS 05/16/19 08/05/19 History fluoxetine 60 mg PO HS 05/16/19 08/05/19 History ibuprofen 600 mg PO TID PRN 05/16/19 08/05/19 History levothyroxine 25 mcg PO QAM 05/16/19 08/05/19 History metformin 850 mg PO BID 05/16/19 08/05/19 History potassium chloride 40 meq PO QAM 05/16/19 08/05/19 History aripiprazole 2 mg PO HS 08/05/19 08/05/19 History calcium carbonate-vitamin D3 2 tab PO QAM 08/05/19 08/05/19 History [Calcium 600 + D(3)] hydralazine 10 mg PO BID 08/05/19 08/05/19 History hydrochlorothiazide 50 mg PO QAM 08/05/19 08/05/19 History insulin glargine [Lantus U-100 8 unit SUBCUT HS 08/05/19 08/05/19 History Insulin] lisinopril 40 mg PO BID 08/05/19 08/05/19 History metoprolol tartrate 50 mg PO BID 08/05/19 08/05/19 History nitroglycerin [Nitrostat] 0.4 mg SUBLINGUAL DIRECTED PRN 08/05/19 08/05/19 History Allergies Allergy/AdvReac Type Severity Reaction Status Date / Time No Known Allergies Allergy Verified 08/05/19 18:03 Past Med/Surg History Medical History (Updated 08/05/19 @ 19:59 by Cecilia Shah DO) DM2 (diabetes mellitus, type 2) (Chronic) HLD (hyperlipidemia) (Chronic) HTN (hypertension) (Chronic) Hypothyroid (Chronic) Surgical History S/P coronary artery stent placement (Resolved) Family History Other Family history non-contributory Social History Preferred Language: [place] Communication Ability: Effective Clinical Dietetic Technician Required: No Beliefs That Will Affect Care: None marital status: single Current Living Situation: Other Current Living Situation Comment: [facility] Feels Safe at Home: Yes Smoking Status: Former smoker Tobacco Type: cigarettes ; Age Started Using Tobacco: 13 ; Age Quit Using Tobacco: 57 ; packs per day: 1.5 ; Number of Years Since Quit: 1 ; Second Hand Exposure: No ; Hx Alcohol Use: No Hx Substance Use: No Review of Systems See HPI for pertinent positives & negatives. and A total of 10 systems reviewed and were otherwise negative Physical Exam Vital Signs Vital Signs - 24 hr 08/05/19 16:30 08/05/19 16:47 08/05/19 17:00 Temperature 36.4 C L Temperature Source Oral Pulse Rate 57 L 46 L Pulse Rate from SpO2 Sensor 46 L Respiratory Rate 15 19 Respiratory Effort / Characteristics Non-Labored Respiratory Depth Normal Respiratory Pattern Regular Blood Pressure 169/94 H 157/103 H Blood Pressure Mean 119 112 Pulse Oximetry 96 96 97 Oxygen Delivery Method Room Air Room Air Sepsis Recent Fever Within 48 Hours No Sepsis New/Unexplained Change in Mental Status No Sepsis Action Taken by Nursing No Action Required 08/05/19 17:13 08/05/19 17:19 08/05/19 17:23 Temperature Temperature Source Pulse Rate 58 L 48 L Pulse Rate from SpO2 Sensor 51 L 48 L Respiratory Rate 26 H 18 Respiratory Effort / Characteristics Respiratory Depth Respiratory Pattern Blood Pressure 168/99 H 156/90 H Blood Pressure Mean 131 105 Pulse Oximetry 97 96 97 Oxygen Delivery Method Room Air Sepsis Recent Fever Within 48 Hours Sepsis New/Unexplained Change in Mental Status Sepsis Action Taken by Nursing 08/05/19 17:24 08/05/19 17:29 08/05/19 17:30 Temperature Temperature Source Pulse Rate 51 L 51 L 50 L Pulse Rate from SpO2 Sensor 51 L 51 L 50 L Respiratory Rate 13 22 14 Respiratory Effort / Characteristics Respiratory Depth Respiratory Pattern Blood Pressure 170/90 H 158/90 H 152/87 H Blood Pressure Mean 124 108 98 Pulse Oximetry 96 96 96 Oxygen Delivery Method Sepsis Recent Fever Within 48 Hours Sepsis New/Unexplained Change in Mental Status Sepsis Action Taken by Nursing 08/05/19 17:45 08/05/19 18:15 08/05/19 18:30 Temperature Temperature Source Pulse Rate 52 L 46 L 49 L Pulse Rate from SpO2 Sensor 46 L Respiratory Rate 23 18 17 Respiratory Effort / Characteristics Respiratory Depth Respiratory Pattern Blood Pressure 166/92 H 178/103 H 192/88 H Blood Pressure Mean 107 136 109 Pulse Oximetry 99 Oxygen Delivery Method Sepsis Recent Fever Within 48 Hours Sepsis New/Unexplained Change in Mental Status Sepsis Action Taken by Nursing 08/05/19 18:45 08/05/19 19:00 Temperature Temperature Source Pulse Rate 49 L 46 L Pulse Rate from SpO2 Sensor 45 L Respiratory Rate 14 16 Respiratory Effort / Characteristics Respiratory Depth Respiratory Pattern Blood Pressure 207/110 H 190/100 H Blood Pressure Mean 152 115 Pulse Oximetry 98 Oxygen Delivery Method Sepsis Recent Fever Within 48 Hours Sepsis New/Unexplained Change in Mental Status Sepsis Action Taken by Nursing GENERAL: alert, well nourished, no distress, non-toxic. Sitting up in bed, di sheveled. Wearing assisted garb. Shackled. EYE EXAM: normal conjunctiva, PERRL and EOM's grossly intact OROPHARYNX: no exudate, no erythema, lips, buccal mucosa, and tongue normal and mucous membranes are moist NECK: supple, no nuchal rigidity, no adenopathy, non-tender LUNGS: Clear to auscultation. Normal chest wall mechanics HEART: no murmurs, S1 normal and S2 normal ABDOMEN: abdomen soft, non-tender, normo-active bowel sounds, no masses, no rebound or guarding. BACK: Back is symmetrical on inspection and there is no deformity, no midline tenderness, no CVA tenderness. SKIN: no rashes and no bruising UPPER EXTREMITIES: upper extremities are grossly normal. LOWER EXTREMITIES: No pitting edema. Calves equal bilateral NEURO EXAM: Normal sensorium, cranial nerves II-XII grossly intact, normal speech, no gross weakness of arms, no gross weakness of legs. Course Course ED COURSE: Vital signs were reviewed and showed hypertensive The patients medical record was reviewed The above diagnostic studies were performed and reviewed. ED treatments and interventions as stated above. 1657: The patient was evaluated in room C10. A complete history and physical examination was performed. 1720: Upon reevaluation, the patient's chest pain is resolved. I discussed my findings with the patient and he understands and agrees with the treatment plan. 1730: Discussed the patient's case with Dr. Shah, [facility] Hospitalist. The patient will be evaluated by her for further management. Based on the patients age, coexisting illnesses, exam and lab findings the decision to treat as an inpatient was made. The patient remained stable while under my care. The patient will be evaluated for further management. Administered Medications Ioversol (Optiray 320 125ml) 118 ml IV ONCE PRN PRN Reason: Interaction Checking Stop: 08/09/19 19:08 Last Admin: 08/05/19 19:09 Dose: 118 ml Documented by: [id number] Nitroglycerin (Nitrostat) 0.4 mg SL UD PRN PRN Reason: Chest Pain Stop: 09/04/19 17:06 Last Admin: 08/05/19 17:22 Dose: 0.4 mg Documented by: [id number] Discontinued Medications Hydralazine HCl (Hydralazine Hcl) 10 mg IV NOW STA Stop: 08/05/19 19:40 Last Admin: 08/05/19 19:59 Dose: Not Given Documented by: [id number] Hydralazine HCl (Hydralazine Hcl) Confirm Administered Dose 20 mg .ROUTE .STK- MED ONE Stop: 08/05/19 19:50 Last Increment: 08/05/19 19:50 Dose: 10 mg Documented by: [id number] Sodium Chloride (Nss 1000ml) 1,000 mls @ 999 mls/hr IV .Q1H1M TOVA Stop: 08/05/19 18:15 Last Infusion: 08/05/19 18:30 Dose: 0 mls/hr Documented by: [id number] Admin: 08/05/19 17:18 Dose: 999 mls/hr Documented by: [id number] Medical Decision Making Differential Diagnosis Differential diagnoses includes but is not limited to acute coronary syndrome, myocardial infarction, pericarditis, pulmonary embolus, aortic dissection, pneumonia, pneumothorax, musculoskeletal, shingles, esophageal. Medical Records Attestation: I reviewed the patient's medical records. Home Medications Current Medication List: was personally reviewed by me Laboratory Data Attestation: I reviewed the patient's lab results. Result diagrams: 08/05/19 16:45 08/05/19 16:45 Lab Results 08/05/19 08/05/19 Range/Units 16:45 16:45 WBC 9.08 (4.8-10.8) K/uL RBC 4.55 L (4.7-6.1) M/uL Hgb 13.6 L (14.0-18.0) g/dL Hct 40.6 L (42-52) % MCV 89.2 (80-100) fL MCH 29.9 (25-34) pg MCHC 33.5 (32-36) g/dL RDW Std Deviation 44.2 (36.4-46.3) fL RDW Coeff of Vonda 13.5 (11.5-14.5) % Plt Count 155 (130-400) K/uL MPV 11.6 H (7.4-10.4) fL Immature Gran % (Auto) 0.3 % Neut % (Auto) 63.4 % Lymph % (Auto) 23.7 % [place] % (Auto) 8.9 % Eos % (Auto) 3.3 % Baso % (Auto) 0.4 % Immature Gran # (Auto) 0.03 H (0.00-0.02) K/uL Neut # (Auto) 5.75 (1.4-6.5) K/uL Lymph # (Auto) 2.15 (1.2-3.4) K/uL [place] # (Auto) 0.81 H (0.11-0.59) K/uL Eos # (Auto) 0.30 (0-0.5) K/uL Baso # (Auto) 0.04 (0-0.2) K/uL Sodium 140 (136-145) mmol/L Potassium 3.5 (3.5-5.1) mmol/L Chloride 108 H (98-107) mmol/L Carbon Dioxide 29 (21-32) mmol/L Anion Gap 4.0 (3-11) BUN 16 (7-18) mg/dl Creatinine 1.00 (0.6-1.4) mg/dl Est Cr Clr Drug Dosing 107.8 ml/min Est GFR ( Amer) 95.1 Est GFR (Non-Af Amer) 82.0 BUN/Creatinine Ratio 15.7 (10-20) Glucose 110 H (70-99) mg/dl Calcium 8.8 (8.5-10.1) mg/dl Total Bilirubin 0.5 (0.2-1) mg/dl AST 16 (15-37) U/L ALT 22 (12-78) U/L Alkaline Phosphatase 72 (45-117) U/L Troponin I < 0.015 (0-0.045) ng/ml Total Protein 6.8 (6.4-8.2) gm/dl Albumin 3.5 (3.4-5.0) gm/dl Globulin 3.3 (2.5-4.0) gm/dl Albumin/Globulin Ratio 1.1 (0.9-2) Lipase 103 (73-393) U/L Imaging Data Radiologist's Impression: Radiology results as stated below per my review and the radiologist's interpretation: XR chest 1V portable CLINICAL HISTORY: Atypical chest pain COMPARISON STUDY: 05/16/2019 FINDINGS: The heart is borderline enlarged. There is aortic tortuosity/ectasia. There is no overt failure. There is slight prominence of basilar markings, statistically atelectatic. There are no significant pleural effusions. There is no pneumothorax. IMPRESSION: Slight prominence of basilar markings, statistically atelectatic. No evidence of lobar consolidation. ACT 112: Negative or not required by law. Electronically signed by: Rodrigo Garay M.D. 08/05/2019 5:17 PM ECG Data Attestation: I personally reviewed and interpreted this ECG as follows: Indication: + chest pain Rate (beats per minute): 50 ECG Intervals/blocks: + Right Bundle branch block ECG [place]: + Normal ECG ST segments: + T-wave inversions (Anterior, Septal) Comparison ECG Date: from (05/17/16) Change: the following changes noted (RBBB is new. ST depressions in anterior and septal are new. ) Blood Pressure Blood Pressure Findings: Elevated blood pressure Blood Pressure Disposition: further management by hospitalist AISHA Narrative Patient is a 58-year-old male who presents the ER for chest pain which started around 3 PM while he was sitting in his cell. He has a previous history of a stents placed back in 2017. He notes this does feel slightly similar. He was given nitro here and his chest pain pain completely resolved. He was given aspirin and nitro prior to arrival as well. IV was established blood work was obtained. Labs show no significant leukocytosis or anemia. BMP was unremarkable as well as LFTs bilirubin and troponin. Lipase was unremarkable. EKG showed a new right bundle with ST depressions but was otherwise fairly consistent with previous. Patient initially came in with systolic pressures in the 150s and this trended up to 200 just prior to admission. CT scan was performed 2/[address] angio of the chest showed proximal aorta with no signs of dissection. He was asymptomatic at this time. Patient was updated bedside discussed with the hospitalist for observation. Impression & Plan Chest pain, Abnormal EKG, Hypertensive urgency Discharge Plan Visit Data *Final* Discharge Date/Time: 08/05/19 20:40 Chief Complaint: Chest Pain Stated Complaint: CHEST PAIN ED Provider: Lucio Molina Discharge Problem: Chest pain, Abnormal EKG, Hypertensive urgency Patient Disposition: Admitted As Inpatient Discharge Instructions Interventions: ED Discharge Assessment Last Done: 08/05/19 20:40 Discharge Problem: Chest pain Qualifiers: Chest pain type: unspecified Qualified Code(s): R07.9 - Chest pain, unspecified The scribe's documentation has been prepared under my direction and personally reviewed by me in its entirety. I confirm that the note above accurately reflects all work, treatment, procedures, and medical decision making performed by me.
[2019-08-05] MEDS ORDERED: ARIPIprazole 1 MG/ML ORAL SOLN 150 ML BTL PO SCH (21:44)
[2019-08-05] MEDS ORDERED: FLUOXETINE HCL 20 MG CAP PO SCH (21:44)
[2019-08-05] MEDS ORDERED: ACETAMINOPHEN 325 MG TAB PO PRN (21:44)
[2019-08-05] MEDS ORDERED: GLUCOSE 10 TABS/TUBE PO PRN (21:44)
[2019-08-05] MEDS ORDERED: INSULIN GLARGINE SOLOSTAR 100 UNITS/ML 3 ML PEN SQ SCH (21:44)
[2019-08-05] MEDS ORDERED: DEXTROSE 50% 50 ML SYRINGE IV PRN (21:44)
[2019-08-05] MEDS ORDERED: CARBOHYDRATES FOR HYPOGLYCEMIA PO PRN (21:44)
[2019-08-05] MEDS ORDERED: GLUCAGON FOR INJ 1 MG VIAL SQ PRN (21:44)
[2019-08-05] MEDS ORDERED: ATORVASTATIN 40 MG TAB PO SCH (21:44)
[2019-08-05] MEDS ORDERED: ONDANSETRON INJ 2 MG/ML 2 ML VIAL IV PRN (21:44)
[2019-08-05] MEDS ORDERED: GLUCOSE 40% GEL 15 GM TUBE PO PRN (21:44)
[2019-08-05] MEDS: HydrALAZINE 10 MG TAB PO SCH (23:11)
[2019-08-05] MEDS: INSULIN ASPART 100 UNITS/ML 3 ML PEN SC SCH (23:14)
[2019-08-05] MEDS: METOPROLOL TARTRATE 50 MG TAB PO SCH (23:14)
[2019-08-05] MEDS: lisinopriL 40 MG TAB PO SCH (23:15)
[2019-08-06] MEDS ORDERED: HydrALAZINE HCL 20 MG/ML VIAL IV STA (00:14)
[2019-08-06 01:29] LABS: Troponin I < 0.015 ng/ml (0-0.045)
[2019-08-06] MEDS ORDERED: LEVOTHYROXINE SODIUM 25 MCG TABLET PO SCH (06:30)
[2019-08-06] MEDS: HydrALAZINE 10 MG TAB PO SCH (07:45)
[2019-08-06] MEDS: METOPROLOL TARTRATE 50 MG TAB PO SCH (07:46)
[2019-08-06] MEDS: INSULIN ASPART 100 UNITS/ML 3 ML PEN SC SCH ×3 (08:16→18:00)
[2019-08-06] MEDS: lisinopriL 40 MG TAB PO SCH (08:17)
[2019-08-06] MEDS ORDERED: ASPIRIN 81 MG ECTAB PO SCH (09:00)
[2019-08-06] MEDS ORDERED: hydroCHLOROthiazide 25 MG TAB PO SCH (09:00)
[2019-08-06] MEDS ORDERED: CALCIUM 600MG + VIT D 400 IU TAB PO SCH (09:00)
[2019-08-06] MEDS ORDERED: AMLODIPINE BESYLATE 5 MG TAB PO SCH (09:00)
[2019-08-06 10:34] LABS: Hematocrit (blood only) 41.8 % (42-52); Hemoglobin 13.9 g/dL (14.0-18.0); Mean Corpuscular Hemoglobin 29.7 pg (25-34); Mean Corpuscular Hgb Conc 33.3 g/dL (32-36); Mean Corpuscular Volume 89.3 fL (80-100); Mean Platelet Volume 11.3 fL (7.4-10.4); Platelet Count 146 K/uL (130-400); RDW Coefficient of Variation 13.7 % (11.5-14.5); RDW Standard Deviation 44.1 fL (36.4-46.3); Red Blood Count 4.68 M/uL (4.7-6.1); White Blood Count 10.05 K/uL (4.8-10.8)
[2019-08-06 11:06] LABS: BUN Creatinine Ratio 13.3 (10-20); Blood Urea Nitrogen 14 mg/dl (7-18); Calcium 9.4 mg/dl (8.5-10.1); Carbon Dioxide 32 mmol/L (21-32); Chloride 105 mmol/L (98-107); Creatinine Clr Calc Pharmacy 99.8 ml/min; Est GFR (African American) 88.6; Est GFR (Non-African American) 76.4; Glucose 87 mg/dl (70-99); Magnesium 2.4 mg/dl (1.8-2.4); Potassium 3.1 mmol/L (3.5-5.1); Sodium 140 mmol/L (136-145)
[2019-08-06 11:10] LABS: Troponin I < 0.015 ng/ml (0-0.045)
[2019-08-06] MEDS ORDERED: POTASSIUM CHLORIDE 20 MEQ TABCR PO STA (11:22)
--- NOTE | 2019-08-06 13:59 | Cardiology Consultation ---
Date of Consultation August 06, 2019 History of Present Illness Requesting Physician: The patient is a 58-year-old male with a past medical history significant for coronary artery disease with a history of stent placement x3 in 2017, hyperlipidemia hypertension diabetes mellitus who is being seen today in consultation for complaint of chest pain. The patient notes that he developed sudden onset left-sided chest discomfort located the lateral wall of the chest yesterday afternoon after receiving male. He noted that there was no exertional component. He denied any pleuritic component and deny any aggravating or alleviating factors. He noted the last about 2-1/2 hours subsequently he presented to [facility] emergency department given his persistent chest pain. Given his history the patient was admitted to the hospitalist service and cardiology was consulted. Upon questioning the patient he notes he has had no further episodes after the 2-1/2 hours of chest pain yesterday. He denies any other symptoms and is otherwise feeling well currently. His cardiac enzymes have remained negative x2 sets with no rhythmic activity noted and no other complaints today. Attending Physician: Rafael Santiago Allergies Allergy/AdvReac Type Severity Reaction Status Date / Time No Known Allergies Allergy Verified 08/05/19 18:03 Home Medications Home Medications Medication Instructions Recorded Confirmed Type amlodipine 10 mg PO QAM 05/16/19 08/05/19 History aspirin [Aspirin Childrens] 81 mg PO QAM 05/16/19 08/05/19 History atorvastatin 40 mg PO HS 05/16/19 08/05/19 History diphenhydramine HCl [Benadryl] 50 mg PO HS 05/16/19 08/05/19 History fluoxetine 60 mg PO HS 05/16/19 08/05/19 History ibuprofen 600 mg PO TID PRN 05/16/19 08/05/19 History levothyroxine 25 mcg PO QAM 05/16/19 08/05/19 History metformin 850 mg PO BID 05/16/19 08/05/19 History potassium chloride 40 meq PO QAM 05/16/19 08/05/19 History aripiprazole 2 mg PO HS 08/05/19 08/05/19 History calcium carbonate-vitamin D3 2 tab PO QAM 08/05/19 08/05/19 History [Calcium 600 + D(3)] hydralazine 10 mg PO BID 08/05/19 08/05/19 History hydrochlorothiazide 50 mg PO QAM 08/05/19 08/05/19 History insulin glargine [Lantus U-100 8 unit SUBCUT HS 08/05/19 08/05/19 History Insulin] lisinopril 40 mg PO BID 08/05/19 08/05/19 History metoprolol tartrate 50 mg PO BID 08/05/19 08/05/19 History nitroglycerin [Nitrostat] 0.4 mg SUBLINGUAL DIRECTED PRN 08/05/19 08/05/19 History Patient History Medical History (Updated 08/05/19 @ 19:59 by Cecilia Shah DO) DM2 (diabetes mellitus, type 2) (Chronic) HLD (hyperlipidemia) (Chronic) HTN (hypertension) (Chronic) Hypothyroid (Chronic) Surgical History S/P coronary artery stent placement (Resolved) Family History Other Family history non-contributory Social History Preferred Language: Portuguese Communication Ability: Effective Radio Television Announcer Required: No Beliefs That Will Affect Care: None marital status: single Current Living Situation: Other Current Living Situation Comment: [facility] Feels Safe at Home: Yes Smoking Status: Former smoker Tobacco Type: cigarettes ; Age Started Using Tobacco: 13 ; Age Quit Using Tobacco: 57 ; packs per day: 1.5 ; Number of Years Since Quit: 1 ; Second Hand Exposure: No ; Hx Alcohol Use: No Hx Substance Use: Yes substance use type: former substance user and marijuana Last Used Substance: Unknown Review of Systems Review of Systems: All systems reviewed & are unremarkable except as noted in HPI & below Physical Exam Physical Exam: General appearance awake alert and oriented no apparent distress stable pleasant HEENT: Normocephalic atraumatic poor dentition Neck: Supple no JVD bruits adenopathy or thyromegaly were noted Cardiovascular exam: Regular rate and rhythm with no murmurs rubs or gallops normal S1-S2 Lungs: Clear to auscultation bilaterally Abdomen: Nontender nondistended with positive bowel sounds or bruits masses are noted Extremities there is no clubbing cyanosis or edema Neuro: Grossly nonfocal Results & Data Vital Signs (Past 12 Hours) Vital Signs Temp Pulse Resp BP Pulse Ox 08/06/19 11:09 36.3 C L 42 L 18 151/81 H 98 08/06/19 07:01 36.4 C L 48 L 18 179/96 H 97 08/06/19 03:45 36.5 C 50 L 20 146/81 H 96 Impression: 1. Chest pain 2. Coronary artery disease 3. Hypertension 4. Hyperlipidemia Plan: Given the patient's clinical complaints it appears the patient has noncardiac chest pain noting he had 2 and half hours of chest pain with no enzyme elevation and no recurrence. His chest pain was atypical noting it was on the left lateral wall. Therefore I have explained to the patient we will continue with medical management for his coronary artery disease. I recommended a low-fat low-salt heart healthy diet. Patient will need increase in his pharmacotherapy for his blood pressure if it continues to be elevated. At this point no further testing is necessary. Patient can follow-up with his primary care physician as well as his primary ski instructor. If any questions please feel free to contact me and thank you for allowing me to to spin the care of this patient
[2019-08-06] MEDS ORDERED: POTASSIUM CHLORIDE 20 MEQ TABCR PO ONE (14:00)
--- NOTE | 2019-08-06 17:20 | Discharge Summary ---
Date of Service August 06, 2019 Admission HPI Per Admitting Provider Romeo Ferrera is a 58yo C male with history of HTN/HLP/DM/CAD s/p stent x 3 in 2017 presenting with chest pain. Pain began at 15:00 when patient was sitting in his cell. Left sided, sharp in nature, 5/10. Non-exe rtional/non-pleuritic/non-radiating. No associated SOB/nausea/diaphoresis. He has received SL Nitro x 4 doses with incremental decrease in CP. Now CP is a "0.5/10", he does, however, have a headache after receiving Nitro. ER Course: Nitro 0.4mg SL x 1, NSS x 1 liter Admission Exam Per Admitting Provider General: patient resting comfortably, NAD, non-toxic in appearance, AA&O x 4, BP 207/118 in RUE and 214/104 in LUE Skin: warm, dry, intact, no rashes or lesions, multiple tattoos HEENT: NC/AT, PERRL, EOMI, anicteric sclera, conjunctiva without injection, external ear normal to inspection and nontender, nares patent, moist mucus membranes, missing front tooth, no oropharyngeal lesions, neck supple, trachea midline, no LAD, no thyromegaly, no JVD Heart: +S1/S2, regular, bradycardic, no m/r/g Lungs: equal air entry bilaterally, no rales/rhonchi/wheezes Abd: +BS, soft, NT/ND, no masses/organomegaly/ascites Ext: warm, 2+ pulses in UE/LE bilaterally, no clubbing/cyanosis or edema Neuro: nonfocal, patient AA&O, speech intact, no facial droop, moving all extremities on command with equal strength 5/5 Principal Diagnosis Chest pain Discharge Exam General: Resting comfortably HEENT: NC/AT; PERRLA with EOMI; [place] conjunctiva, MMM. No erythema of posterior pharynx Neck: Supple and nontender Cardiac: RRR Lungs: CTA bilaterally Abdomen: Bowel normoactive X 4; Nontender to palpation Extremities: Warm. No edema present Neuro: No focal weakness Skin: No rash Discharge Data Allergies Allergy/AdvReac Type Severity Reaction Status Date / Time No Known Allergies Allergy Verified 08/05/19 18:03 Consultations 08/05/19 17:48 ED Decision to Admit Stat 08/06/19 09:19 Consult Cardiology Routine Ordered Studies 08/05/19 19:06 CT angio chest w con Stat Hospital Course (1) Chest pain: 58yo C male with history of CAD s/p stent x 3 in 2017, HTN/HLP/DM and aortic root and proximal ascending aorta dilation presenting with acute onset left sided chest pain which started at 15:00 today. Pain relieved with Nitro. EKG with new RBBB, troponin x 1 negative. Patient with slight chest discomfort at present. Patient denies exertional chest discomfort. Echocardiogram in May 2019 with EF of 60-65%, Type I diastolilc dysfunction and aortic dilation of 4.8cm. Trop negative x 3. Continued cardiac meds. Cardiology consulted, chest pain was not likely related to cardiac source. Recommend continuing heart healthy, low sodium diet. Chest pain resolved by time of discharge; discharged back to [facility] on 08/06. (2) Abnormal EKG: New RBBB on EKG. Cleared by cardiology. (3) HTN (hypertension): Very uncontrolled HTN -- likely uncontrolled at baseline. Continued home HCTZ 50 mg PO daily, Amlodipine 10 mg daily, Lisinopril 40 mg BID, Metoprolol 50 mg BID (cannot increase due to bradycardia), Hydralazine 10 mg BID. BP was improved by time of discharge. Consider increasing Hydralazine if necessary in outpatient setting. (4) History of coronary artery disease: As above, patient with CAD s/p stent x 3 in 2017. Continued home meds. Cardiac work up was negative. (5) Mood disorder: Continued Ariprazole 2mg po qhs. Continued Fluoxetine. (6) Aortic dilatation: Patient with 4.8cm dilation of ascending aorta noted on echocardiogram from 05/17/19. Imaged with CTA, size unchanged, no dissection. (7) HLD (hyperlipidemia): Continued Atorvastatin (8) DM2 (diabetes mellitus, type 2): SSI as inpatient. (9) Hypothyroid: Continued Synthroid as prescribed. TSH is 6.38 - recommend repeat monitoring in 3-4 weeks. Stable for discharge back to [facility] on 08/06/19. Total Time Total Time Spent Total Time Spent (In Minutes): 40 minutes Total Time Includes: Examination of the Patient, Discharge Planning, Medication Reconciliation, Communication With Other Providers and Other Discharge Plan Discharge Items [facility] Disposition: [facility] Reason For Visit: CHEST PAIN Discharge Diagnosis: Chest Pain Condition on Discharge: Fair Goals: You have been hospitalized for an acute medical problem. During your stay at [facility], we have made an effort to correct the problem that brought you to the hospital while keeping you as comfortable as possible. Medications were used to bring your condition under control and your discharge instructions will include directions for any medications you should take after l eaving the hospital. Please make sure you see your Primary Care Provider as part of your follow up plan. Activity: As commented below Non-emergency contact: Primary Care Provider and [employer] Winder Call non-emergency contact if: you have any medication questions, your symptoms worsen and you have a fever Follow-up/Referrals: Leia MELGAR [Primary Care Provider] - Diet: Heart Healthy and Low Sodium (2gm) Addtl Attending Provider Instructions: 1. Chest pain * Cardiac work up was negative. * Please continue a heart healthy, low sodium diet. * Continue cardiac medications as prescribed. * Please follow up with PCP and cardiology as outpatient. 2. Hypertension * Continue to monitor BP -- consider increase in Hydralazine dose if BP remains elevated. Pending Studies at Discharge: No Stand-Alone Forms: Call Back Authorization, My [facility] Skilled Items Patient informed of condition?: Yes DNR: No Discharge Level of Care: Other Communicable Disease: No Discharge Prognosis: Improving Lines: None Urinary Catheter: No Medications and DC Order Prescriptions: Continued atorvastatin 40 mg Tablet 40 mg PO HS RF: 0 metformin 850 mg Tablet 850 mg PO BID RF: 0 levothyroxine 25 mcg Tablet 25 mcg PO QAM RF: 0 amlodipine 10 mg Tablet 10 mg PO QAM RF: 0 diphenhydramine HCl [Benadryl] 25 mg Capsule 50 mg PO HS RF: 0 aspirin [Aspirin Childrens] 81 mg Tablet,Chewable 81 mg PO QAM RF: 0 ibuprofen 600 mg Tablet 600 mg PO TID PRN (Reason: Pain) RF: 0 fluoxetine 20 mg Capsule 60 mg PO HS RF: 0 potassium chloride 20 mEq Tablet Extended Release 40 meq PO QAM RF: 0 hydralazine 10 mg Tablet 10 mg PO BID RF: 0 Lantus U-100 Insulin 100 unit/mL Solution 8 unit SUBCUT HS RF: 0 metoprolol tartrate 50 mg Tablet 50 mg PO BID RF: 0 nitroglycerin [Nitrostat] 0.4 mg Tablet, Sublingual 0.4 mg sublingual DIRECTED PRN (Reason: Chest Pain) RF: 0 hydrochlorothiazide 25 mg Tablet 50 mg PO QAM RF: 0 lisinopril 40 mg Tablet 40 mg PO BID RF: 0 aripiprazole 2 mg Tablet 2 mg PO HS RF: 0 calcium carbonate-vitamin D3 [Calcium 600 + D(3)] 600 mg(1,500mg) -400 unit Tablet 2 tab PO QAM RF: 0 Admission Data Admit Date/Time: 08/05/19 19:08 Attending Provider: Rafael Santiago Admit Provider: Cecilia Shah Primary Care Provider: Leia MELGAR Other Providers: Cecilia Shah ; Monster Hernandez Other Interventions: Discharge Summary Assessment (RN) Last Done: 08/06/19 15:48 DC Date/Time DO NOT enter until pt leaves facility: 08/06/19 20:57 Supervising Physician Co-Signing Physician Notes During my face to face encounter with the patient, I performed a physcial examination and obtained a history of hospital stay. I reviewed above note and agree with it. Patient reports feeling well. Patient was evaluated by cardiology and chest pain appears likely to be non- cardiac related. Patient is cleared to be discharged. Coding Level of Care Code D/C Day Management >30 mins Diagnoses Chest pain R07.9 Chest pain type: unspecified Abnormal EKG R94.31 HTN (hypertension) I10 Hypertension type: essential hypertension History of coronary artery disease Z86.79 Mood disorder F39 Aortic dilatation I77.819 HLD (hyperlipidemia) E78.5 Hyperlipidemia type: unspecified DM2 (diabetes mellitus, type 2) E11.9; Z79.4 Diabetes mellitus complication status: without complication Diabetes mellitus meterman insulin use: with fpc use Hypothyroid E03.9 Hypothyroidism type: unspecified
--- NOTE | 2019-08-06 17:43 | Electrocardiogram Report ---
Test Reason : Blood Pressure : / mmHG Vent. Rate : 050 BPM Atrial Rate : 050 BPM P-R Int : 222 ms QRS Dur : 162 ms QT Int : 496 ms P-R-T Axes : 036 020 039 degrees QTc Int : 452 ms Sinus bradycardia with 1st degree A-V block Right bundle branch block Abnormal ECG When compared with ECG of 17-MAY-2019 09:30, Right bundle branch block is now Present Confirmed by Phillip Mike ([id number]) on 08/06/2019 5:43:09 PM Referred By: Leia SCI Confirmed By:Lionel Mike
== END 2019-08-06 20:57 ==
LOC: ED 16:29 → 2W 16:29 → SUATTDRO 19:08 → 2W 20:40